=== PATIENT | female | born 1990 | race African-American/Black ===

== ENCOUNTER → 2016-11-20 | Outpatient (CLI) | payer BC ==
[~2016-11-20] MED LIST: ACET50TA PO; ALBU17IN INH; BENZ100C5 PO; CAND4TAB PO; FLON1SPR; IBUP80TA PO; MAG400TA PO; METO-207 PO; MOM30SS PO; PRED10TA PO; PRENATAL VITAMIN PO; PRENTAB9 PO
--- NOTE | 2016-11-20 22:14 | REP ---
Clinical: Contusion. Technique: AP, lateral views of the left tibia / fibula. Findings: No acute fracture or dislocation. Skeletal structures and joint spaces are intact and normal for age. Surrounding subcutaneous tissues are normal. Impression: Normal left tibia / fibula radiographs. Signed by Mike Dinero MD 11/20/2016 10:06 P
== END ==
LOC: M ADAMS 18:34
PROVIDERS: ATTEND Physician Assistant Medical
DX: S80.12XA Contusion of left lower leg, initial encounter (principal); X58.XXXA Exposure to other specified factors, initial encounter; Y92.89 Other specified places as the place of occurrence of the external cause; Y93.89 Activity, other specified; Y99.8 Other external cause status

== ENCOUNTER → 2018-03-17 | Outpatient (REF) | payer BC | LOC: M SFHCPLAZ 13:34 | DX: O90.3 Peripartum cardiomyopathy (principal); E55.9 Vitamin D deficiency, unspecified; R20.2 Paresthesia of skin ==

== ENCOUNTER → 2018-04-29 | Outpatient (CLI) | payer BC | LOC: M RAD 11:15 | DX: R05 Cough (principal) | CPT/HCPCS: 71046 ==

== ENCOUNTER → 2018-04-29 | Outpatient (REF) | payer BC ==
[2018-04-29 13:16] LABS: BASO % 0.4 % (0.0-1.0); EOS # 0.2 10^3/uL (0.0-0.50); EOS % 2.6 % (0.0-3.0); HEMATOCRIT 35.5 % (36.0-47.0); HEMOGLOBIN 11.1 g/dl (12.0-15.5); IMMATURE GRANULOCYTE % 0.3 % (0-3.0); LYMPH # 1.9 10^3/uL (1.5-6.5); LYMPH % 21.1 % (24.0-44.0); MEAN CORPUSCULAR HEMOGLOBIN 26.9 pg (27.0-33.0); MEAN CORPUSCULAR HGB CONC 31.3 g/dl (32.0-36.5); MONO # 0.5 10^3/uL (0.0-0.8); NEUTROPHILS # 6.4 10^3/uL (1.8-7.7); NEUTROPHILS % 70.6 % (36.0-66.0); PLATELET COUNT, AUTOMATED 425 10^3/uL (150-450); RED BLOOD COUNT 4.13 10^6/uL (4.00-5.40); RED CELL DISTRIBUTION WIDTH 14.8 % (11.5-14.5); WHITE BLOOD COUNT 9.1 10^3/uL (4.0-10.0)
[2018-04-29 13:37] LABS: ALBUMIN 3.1 GM/DL (3.2-5.2); ALBUMIN/GLOBULIN RATIO 0.72 (1.00-1.93); ALKALINE PHOSPHATASE 137 U/L (45-117); ALT/SGPT 18 U/L (12-78); ANION GAP 9 MEQ/L (8-16); AST/SGOT 13 U/L (7-37); BILIRUBIN,TOTAL 0.3 MG/DL (0.2-1.0); BLOOD UREA NITROGEN 8 MG/DL (7-18); CALCIUM LEVEL 8.6 MG/DL (8.5-10.1); CARBON DIOXIDE LEVEL 28 MEQ/L (21-32); CHLORIDE LEVEL 105 MEQ/L (98-107); CHOLESTEROL LEVEL 194 MG/DL (<200); CHOLESTEROL RISK RATIO 3.464 (<5); FREE T4 0.78 NG/DL (0.76-1.46); GLOMERULAR FILTRATION RATE > 60.0 (>60); GLUCOSE, FASTING 84 MG/DL (70-100); HDL CHOLESTEROL 56 MG/DL (>40); LDL CHOLESTEROL 116.8 MG/DL (<100); NON-HDL-C 138 MG/DL; POTASSIUM SERUM 4.3 MEQ/L (3.5-5.1); SODIUM LEVEL 142 MEQ/L (136-145); TOTAL PROTEIN 7.4 GM/DL (6.4-8.2); TRIGLYCERIDES LEVEL 106 MG/DL (<150)
[2018-04-29 14:18] LABS: FOLATE 14.6 NG/ML; VITAMIN B12 LEVEL 470 PG/ML
== END ==
LOC: M SFHCPLAZ 10:05
DX: J30.2 Other seasonal allergic rhinitis (principal); I42.9 Cardiomyopathy, unspecified; E66.9 Obesity, unspecified; E83.40 Disorders of magnesium metabolism, unspecified; R20.2 Paresthesia of skin
CPT/HCPCS: 82746

== ENCOUNTER → 2018-06-01 | Outpatient (CLI) | payer BC | LOC: M WUC 14:37 | DX: M79.662 Pain in left lower leg (principal); M25.571 Pain in right ankle and joints of right foot; M77.31 Calcaneal spur, right foot; M79.89 Other specified soft tissue disorders | CPT/HCPCS: 73590 ==

== ENCOUNTER → 2018-07-28 | Outpatient (CLI) | payer BC ==
[2018-07-28 14:39] LABS: ANION GAP 8 MEQ/L (8-16); BLOOD UREA NITROGEN 6 MG/DL (7-18); CARBON DIOXIDE LEVEL 27 MEQ/L (21-32); CHLORIDE LEVEL 106 MEQ/L (98-107); CREATININE FOR GFR 0.56 MG/DL (0.55-1.30); GLOMERULAR FILTRATION RATE > 60.0 (>60); GLUCOSE, FASTING 76 MG/DL (70-100); POTASSIUM SERUM 4.4 MEQ/L (3.5-5.1); SODIUM LEVEL 141 MEQ/L (136-145)
== END ==
LOC: M LAB 12:58
DX: Z01.812 Encounter for preprocedural laboratory examination (principal); Z79.899 Other long term (current) drug therapy; G56.03 Carpal tunnel syndrome, bilateral upper limbs
CPT/HCPCS: 80048

== ENCOUNTER → 2019-04-17 | Outpatient (REF) | payer BC ==
[~2019-04-17] MED LIST changes: -ACET50TA PO; +BENZ-18 PO; -BENZ100C5 PO; +MAPA500T17 PO; -METO-207 PO; +METO1TAB7 PO; +PRED-351 PO; -PRED10TA PO
== END ==
LOC: M LAB REF 12:15
PROVIDERS: ATTEND Physician Assistant Medical
DX: J02.9 Acute pharyngitis, unspecified (principal)

== ENCOUNTER → 2019-04-26 | Outpatient (CLI) | payer BC ==
--- NOTE | 2019-04-26 13:39 | REP ---
CHEST, TWO VIEWS: COMPARISON: 04/29/2018. There is no evidence of acute infiltrate. No pleural effusion is seen. The heart is normal in size. The mediastinal silhouette is unremarkable. The visualized osseous structures are intact. IMPRESSION: No acute pulmonary disease. Electronically Signed by Butch Kingsley MD 04/27/2019 11:36 A
== END ==
LOC: M LAB 12:47
PROVIDERS: ATTEND Family Medicine
DX: I50.42 Chronic combined systolic (congestive) and diastolic (congestive) heart failure (principal); R05 Cough

== ENCOUNTER → 2019-05-27 | Outpatient (REF) | payer BC ==
[2019-05-27 19:08] LABS: BASO % 0.3 % (0.0-1.0); BLOOD UREA NITROGEN 8 MG/DL (7-18); CALCIUM LEVEL 8.7 MG/DL (8.5-10.1); CARBON DIOXIDE LEVEL 26 MEQ/L (21-32); CHLORIDE LEVEL 105 MEQ/L (98-107); CREATININE FOR GFR 0.52 MG/DL (0.55-1.30); EOS # 0.3 10^3/uL (0.0-0.50); EOS % 2.8 % (0.0-3.0); GLOMERULAR FILTRATION RATE > 60.0 (>60); GLUCOSE, FASTING 64 MG/DL (70-100); HEMATOCRIT 36.2 % (36.0-47.0); HEMOGLOBIN 11.4 g/dl (12.0-15.5); LYMPH # 2.3 10^3/uL (1.5-4.5); LYMPH % 23.1 % (24.0-44.0); MEAN CORPUSCULAR HEMOGLOBIN 27.3 pg (27.0-33.0); MEAN CORPUSCULAR HGB CONC 31.5 g/dl (32.0-36.5); MEAN CORPUSCULAR VOLUME 86.8 fl (80.0-96.0); MONO # 0.6 10^3/uL (0.0-0.8); NEUTROPHILS # 6.7 10^3/uL (1.8-7.7); NEUTROPHILS % 67.5 % (36.0-66.0); NT-PRO BNP 62 PG/ML (<125); PLATELET COUNT, AUTOMATED 422 10^3/uL (150-450); POTASSIUM SERUM 4.1 MEQ/L (3.5-5.1); RED BLOOD COUNT 4.17 10^6/uL (4.00-5.40); SODIUM LEVEL 139 MEQ/L (136-145)
== END ==
LOC: M SFHCPLAZ 15:33
PROVIDERS: ATTEND Nurse Practitioner Family
DX: J06.9 Acute upper respiratory infection, unspecified (principal); I50.42 Chronic combined systolic (congestive) and diastolic (congestive) heart failure

== ENCOUNTER → 2019-08-23 | Outpatient (CLI) | payer BC ==
--- NOTE | 2019-08-23 11:58 | REP ---
ULTRASOUND RIGHT BREAST: Real-time sonographic evaluation of the right breast performed in the region of the palpable lump 10-o'clock position right breast. Tyrer-Cuzick lifetime risk of breast cancer 15.7%. At that location, a hypoechoic nodule with lobulated and somewhat irregular margins is seen demonstrating internal arterial blood flow with duplex Doppler evaluation. It measures 4.7 x 2.4 x 3.9 cm. IMPRESSION: ACR 4 suspicious. Solid mass with somewhat irregular margins at the site of the palpable lump right breast 10-o'clock region. This measure 4.7 x 2.4 x 3.9 cm. Ultrasound-guided biopsy is recommended.
== END ==
LOC: M WHC 09:04
PROVIDERS: ATTEND Nurse Practitioner Family
DX: N63.0 Unspecified lump in unspecified breast (principal)

== ENCOUNTER → 2019-09-01 | Outpatient (REF) | payer BC | LOC: M LAB REF 10:21 | PROVIDERS: ATTEND Surgery | DX: D05.12 Intraductal carcinoma in situ of left breast (principal) ==

== ENCOUNTER → 2019-09-10 | Outpatient (CLI) | payer BC ==
[~2019-09-10] MED LIST changes: +ONDA4TAB5 PO; +SPIR-10 PO; +VENL37.598 PO
--- NOTE | 2019-09-10 20:35 | ECHO ---
DATE OF PROCEDURE: 09/10/2019 Date of : 1990 Age: 29 REFERRING PROVIDER: Dr. Yue Wilson REASON FOR THE STUDY: Chemotherapy drug monitoring. History of breast cancer. History of cardiomyopathy. 2D MEASUREMENTS: IVS: 0.9 cm LV: 5.4 cm LVPW: 1.0 cm LA: 3.7 cm Aorta: 3.5 cm IVC: 1.8 cm DOPPLER MEASUREMENTS: Peak velocity across the aortic valve: 1.2 meters per second Peak velocity across the LVOT: 0.73 meters per second Mitral E: 0.77, mitral A: 0.61 with a ratio of 1.3 2D COMMENTS: 1. Normal left ventricular wall thickness with a borderline enlarged left ventricle and a mildly depressed global left ventricular systolic function. The estimated left ventricular systolic ejection fraction is 45-50%. 2. Normal left atrium. Normal right atrium and right ventricle. 3. The atrial septum appeared to be normal without evidence of defect or shunt. 4. Normal aortic root. 5. No pericardial effusion seen. 6. Mildly calcified aortic valve with normal aortic valve. Mildly calcified mitral annulus with normal anterior mitral valve leaflet motion. Normal tricuspid valve and pulmonic valve. The proximal pulmonary artery branches were not well visualized. 7. The inferior vena cava was normal in size, central venous pressure is most likely normal. DOPPLER: No significant valvular abnormalities detected, but trace mitral and tricuspid regurgitation. IMPRESSION: 1. Mild global left ventricular systolic dysfunction with global hypokinesis. Left ventricular diastolic function appeared to have improved. 2. Mitral annulus calcification with trace mitral regurgitation. 3. Trace tricuspid regurgitation. 4. This was compared with prior echocardiogram report done on 10/20/2015 and at the time, left ventricular ejection fraction (LVEF) was reported to be 10-15% with moderate mitral regurgitation, moderate tricuspid regurgitation. MTDD
== END ==
LOC: M CARPUL 11:07
PROVIDERS: ATTEND Internal Medicine Hematology & Oncology
DX: C50.919 Malignant neoplasm of unspecified site of unspecified female breast (principal); I08.1 Rheumatic disorders of both mitral and tricuspid valves

== ENCOUNTER → 2019-09-22 | Outpatient (CLI) | payer BC | LOC: M RAD 15:12 | PROVIDERS: ATTEND Surgery | DX: C50.411 Malignant neoplasm of upper-outer quadrant of right female breast (principal) ==

== ENCOUNTER 2019-10-05 22:36 | Inpatient (IN) | payer BC ==
[~2019-10-05] VITALS: Ht 170.2 cm; Wt 127.5 kg
[2019-10-05] MEDS ORDERED: MORPHINE 4 MG/ML 1ML VIAL/SYRINGE (J2270) IV ONE ×2 (23:00→23:45)
[2019-10-05] MEDS ORDERED: NS 1,000 ML IV ONE (23:00)
[2019-10-05 23:24] LABS: HEMATOCRIT 34.2 % (36.0-47.0); HEMOGLOBIN 10.4 g/dl (12.0-15.5); MEAN CORPUSCULAR HEMOGLOBIN 26.6 pg (27.0-33.0); MEAN CORPUSCULAR HGB CONC 30.4 g/dl (32.0-36.5); MEAN CORPUSCULAR VOLUME 87.5 fl (80.0-96.0); PLATELET COUNT, AUTOMATED 252 10^3/uL (150-450); RED BLOOD COUNT 3.91 10^6/uL (4.00-5.40); VENOUS BASE EXCESS 1.1 (-2.0-2.0); VENOUS HCO3 27.2 MEQ/L (23.0-27.0); VENOUS O2 SATURATION 80.5 % (60.0-80.0); VENOUS PARTIAL PRESSURE CO2 49.3 mmHg (38.0-50.0); VENOUS PARTIAL PRESSURE O2 46.8 mmHg (30.0-50.0); VENOUS PH 7.359 UNITS (7.330-7.430); VENOUS STANDARD HCO3 25.2 MEQ/L; VENOUS TOTAL CO2 28.7 MEQ/L (24.0-28.0)
[2019-10-05 23:48] LABS: WHITE BLOOD COUNT 1.8 10^3/uL (4.0-10.0)
[2019-10-05 23:55] LABS: ATYPICAL LYMPH 1 % (0-5); BASOPHILS 2 % (0-1); EOSINOPHILS 3 % (0-3); HYPOCHROMASIA 1+; LYMPHOCYTES 70 % (16-44); MONOCYTES 12 % (0-5); NEUTROPHILS 12 % (28-66); PLATELET ESTIMATE NORMAL (NORMAL)
[2019-10-05 23:56] LABS: ANISOCYTOSIS 1+
--- NOTE | 2019-10-05 23:57 | ECGEPIP ---
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
[2019-10-05 23:59] LABS: ALBUMIN 2.7 GM/DL (3.2-5.2); ALT/SGPT 55 U/L (12-78); BILIRUBIN,DIRECT 0.1 MG/DL (0.0-0.2); BILIRUBIN,TOTAL 0.2 MG/DL (0.2-1.0); BLOOD UREA NITROGEN 9 MG/DL (7-18); CALCIUM LEVEL 7.6 MG/DL (8.5-10.1); CARBON DIOXIDE LEVEL 31 MEQ/L (21-32); CHLORIDE LEVEL 101 MEQ/L (98-107); CK-MB VALUE MASS < 1.0 NG/ML (<3.6); CPK CREATINE PHOSPHOKINASE 42 U/L (26-192); GLOMERULAR FILTRATION RATE > 60.0 (>60); GLUCOSE, FASTING 116 MG/DL (70-100); MB/CK RELATIVE INDEX 2.38 (< OR =4); POTASSIUM SERUM 3.5 MEQ/L (3.5-5.1); SODIUM LEVEL 139 MEQ/L (136-145); TOTAL PROTEIN 6.1 GM/DL (6.4-8.2); TROPONIN I < 0.02 NG/ML (< 0.10)
[2019-10-06] VITALS (8 sets, daily range): BP systolic 108–134; BP diastolic 62–81; PULSE 100
[2019-10-06] MEDS ORDERED: CEFEPIME HCL 2 GM in D5W MINI-BAG PLUS 50 ML IV ONE ×2
[2019-10-06 00:06] LABS: HCG, SERUM QUALITATIVE NEGATIVE (NEGATIVE)
[2019-10-06] MEDS ORDERED: DEXA4TA PO (00:09)
[2019-10-06] MEDS ORDERED: METO1TAB33 PO (00:09)
[2019-10-06] MEDS ORDERED: CAND4TAB PO (00:09)
[2019-10-06] MEDS ORDERED: IBUP1TAB6 PO (00:09)
[2019-10-06] MEDS ORDERED: VENL75CA47 PO (00:09)
[2019-10-06] MEDS ORDERED: MAGN400T3 PO (00:09)
[2019-10-06] MEDS ORDERED: ASPI81CH44 PO (00:09)
[2019-10-06] MEDS ORDERED: ISOVUE-370 76% 100ML VIAL (Q9967) As Ordered ONE (00:12)
--- NOTE | 2019-10-06 01:12 | REPVR ---
PROCEDURE INFORMATION: Exam: CT Angiography Chest With Contrast Exam date and time: 10/05/2019 11:38 PM Age: 29 years old Clinical history: Right-sided chest pain, elevated d-dimer, breast CA on chemo, eval for PE TECHNIQUE: Imaging protocol: Computed tomographic angiography of the chest with intravenous contrast. 3D rendering: MIP reconstructed images were created and reviewed. Radiation optimization: All CT scans at this facility use at least one of these dose optimization techniques: automated exposure control; mA and/or kV adjustment per patient size (includes targeted exams where dose is matched to clinical indication); or iterative reconstruction. Contrast material: ISO; Contrast volume: 75 ml; Contrast route: UPPER ARM; COMPARISON: CR PORTABLE CHEST X-RAY 10/05/2019 11:49:31 PM BREAST U/S UNILATERAL LIMITED 08/23/2019 8:31:[address] ANGIO CHEST 10/20/2015 3:50 PM FINDINGS: Tubes, catheters and devices: There is a left internal jugular Port-A-Cath terminating in the junction of the superior vena cava and right atrium. Pulmonary arteries: There is no pulmonary embolism in the main, lobar, or segmental pulmonary arteries. The timing of the contrast bolus was suboptimal for the assessment of the subsegmental pulmonary arteries, which are poorly opacified. Great vessels off aortic arch: The brachiocephalic artery, imaged proximal portion of the left common carotid artery, and left subclavian artery are intact. No significant stenosis or occlusion of these vessels is noted. Aorta: There is no thoracic aortic aneurysm, pseudoaneurysm, intramural hematoma, penetrating atherosclerotic ulcer, or dissection. Lungs: The lungs are clear. There is no lung consolidation or mass. No interstitial lung disease or emphysematous changes are noted. The major airways are patent. Incidental note is made of a 5 mm tracheal diverticulum arising from the right posterolateral aspect of the trachea at the level of the thoracic inlet, which is stable compared to the prior CT on 10/20/2015. Pleural space: Unremarkable. No pneumothorax. No pleural effusion. Heart: No cardiomegaly. No pericardial effusion. The ratio of the diameter of the right ventricle to the diameter of the left ventricle measures less than 1, which is within normal limits and there is no evidence for a right ventricular strain. Mediastinum: No mediastinal mass, fluid collection, or pneumomediastinum. Lymph nodes: There are subcentimeter right axillary lymph nodes measuring up to 9 mm. No enlarged lymph nodes measuring greater than 1 cm are noted in the chest. Bones/joints: The imaged bony structures are intact. There is no suspicious osteolytic lesion. Incidental note is made of a small bone island in the right side of the T7 vertebral body. Soft tissues: There is a 5.8 cm x 4.3 cm x 5.6 cm irregular mass in the right breast, which likely corresponds to the patient's known breast cancer. IMPRESSION: 1. No pulmonary embolism in the main, lobar, or segmental pulmonary arteries. The timing of the contrast bolus was suboptimal for the assessment of the subsegmental pulmonary arteries, which are poorly opacified. 2. 5.8 cm x 4.3 cm x 5.6 cm irregular mass in the right breast, which likely corresponds to the patient's known breast cancer. Electronically signed by: Rohan Bernard On 10/06/2019 01:11:20 AM
[2019-10-06] MEDS ORDERED: ACETAMINOPHEN TAB 650MG DOSE (2X325MG) PO PRN (02:15)
[2019-10-06] MEDS ORDERED: MAGIC MOUTHWASH SUSPENSION BTL SSP PRN (02:15)
[2019-10-06] MEDS ORDERED: IBUPROFEN 600 MG TAB PO PRN (02:30)
[2019-10-06] MEDS ORDERED: ASPIRIN 81 MG CHEW TABLET PO SCH (02:30)
[2019-10-06] MEDS ORDERED: ONDANSETRON 4 MG TAB (S0181) PO PRN ×2 (02:30→03:00)
[2019-10-06] MEDS: NS 1,000 ML IV SCH ×2 (03:16→14:53)
[2019-10-06 03:20] LABS: LDH LACTATE DEHYDROGENASE 254 U/L (84-246)
[2019-10-06] MEDS ORDERED: POTASSIUM CHLORIDE 10 MEQ SR TABLET PO ONE (04:00)
[2019-10-06] MEDS: MEROPENEM INJ 1 GM in IV 1 EA IV SCH ×3 (05:18→20:52)
[2019-10-06 06:03] LABS: HEMATOCRIT 32.4 % (36.0-47.0); HEMOGLOBIN 10.1 g/dl (12.0-15.5); MEAN CORPUSCULAR HEMOGLOBIN 26.9 pg (27.0-33.0); MEAN CORPUSCULAR HGB CONC 31.2 g/dl (32.0-36.5); MEAN CORPUSCULAR VOLUME 86.4 fl (80.0-96.0); PLATELET COUNT, AUTOMATED 258 10^3/uL (150-450); RED BLOOD COUNT 3.75 10^6/uL (4.00-5.40); WHITE BLOOD COUNT 2.1 10^3/uL (4.0-10.0)
--- NOTE | 2019-10-06 06:21 | HPEPDOC ---
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 Das Oncologist: Dr. Huff in [place] Attending Physician: ERIC DUMONT DO Chief Complaint The patient is a 29-year-old female admitted with a reason for visit of Cardiomyopathy,Chemotherapy Induced Neutropenia,Ch. History of Present Illness This is a 29-year-old female with notable history of dilated cardiomyopathy from 4 years ago with a residual EF reported 45%, and recently diagnosed right-sided breast cancer without any metastases on August 30 of this year, with first chemotherapy session this past . She reports she also received Neulasta on Friday, which led to bone aches and chills. She presents today for gradually worsening dyspnea and right chest pain that began yesterday around 5 PM at work, no inciting factors. No recent exposures, travel, changes in meds. She describes pain as sharp, intermittent localized to substernal and right chest wall without any radiation, worse with inhalation and activity, improved with sitting up and resting. She reports her dyspnea started along with this. No cough, fever, or phlegm production. In the ER, she was noted to be neutropenic with 12 neutrophils, EKG in sinus tach with rate in 130s without any other acute changes. D-dimer also +1300+, CTA negative for PE. She received 1 dose of cefepime, fluids. Will be admitted for continued symptoms setting of severe neutropenia. Home Medications Scheduled Aspirin (Aspirin) 81 Mg Tab.chew, 324 MG PO ASDIRECTED, (Reported) TAKEN PRIOR TO ARRIVAL TO HOSPITAL Candesartan Cilexetil (Candesartan Cilexetil) 4 Mg Tablet, 4 MG PO DAILY, (Reported) Dexamethasone (Dexamethasone) 4 Mg Tablet, 8 MG PO ASDIRECTED, (Reported) TAKES 2 TABS THE DAY BEFORE, THE DAY OF AND THE DAY AFTER CHEMO. NEXT TREATMENT AROUND October. Magnesium Oxide (Magnesium Oxide) 400 Mg Tablet, 400 MG PO QHS, (Reported) Metoprolol Succinate (Metoprolol Succinate) 100 Mg Tab.er.24h, 150 MG PO QHS, (Reported) Spironolactone (Spironolactone) 25 Mg Tablet, 25 MG PO DAILY, (Reported) Venlafaxine HCl (Venlafaxine HCl ER) 75 Mg Cap.er.24h, 75 MG PO BID, (Reported) Scheduled PRN Ibuprofen (Ibuprofen) 600 Mg Tablet, 600 MG PO Q6H PRN for PAIN, (Reported) Ondansetron HCl (Ondansetron HCl) 4 Mg Tablet, 1 TAB PO Q4HP PRN for nausea/vomiting Allergies Coded Allergies: Gadolinium-Containing Contrast Medi (Verified Adverse Reaction, Unknown, vomit, 10/05/19) Past Medical History Medical History Dilated cardio myopathy in 2014 with residual EF 45% Right-sided breast cancer diagnosed August 2019, reportedly no metastases Surgical History Carpal tunnel release left hand Tubal ligation Family History Father of unknown causes, mother alive with ovarian cancer, 4 sisters and 3 brothers healthy Social History Denies ever smoking, drinking, or illicit substances. Lives at home with and 3 children. 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 A-FIB/CHADSVASC A-FIB History Current/History of A-Fib/PAF?: No Current PO Anticoag Therapy: No Review of Systems Other systems Constitutional: Denies fever, night sweats, weight loss. Admits chills Eyes: Denies eye pain, vision change ENT: Denies headaches, ear pain, dysphagia Skin: Denies any rashes or lesions Pulmonary: Admits dyspnea. Denies cough, wheezing Cardiac: Denies palpitations, orthopnea, PND, edema, lightheadedness GI: Denies nausea, vomiting, abdominal pain, diarrhea, constipation, melena, hematochezia MSK: Admits right chest pain. Denies other pains Neurologic: Denies weakness, numbness/tingling Heme/Onc: Admits to recently diagnosed breast cancer Physical Examination Other physical findings General exam: Alert and cooperative, A&O 3, NAD Eye exam: PERRLA, EOMI, anicteric sclerae ENT: Atraumatic, normocephalic, mucous membranes moist Neck: Supple, no JVD, no carotid bruits or appreciable adenopathy Cardiac: RRR at time of exam, normal S1 & S2, no murmurs Respiratory: good air exchange, no wheezing or rales. Mild rhonchi in the right lower base, otherwise clear throughout Abdomen: Soft, normoactive bowel sounds, nontender, nondistended, no masses Extremity: 2+ radial and dorsalis pedis pulses, no edema, clubbing, cyanosis, or tenderness Skin: warm, dry, no visible rash or lesions Neuro: Strength 5/5 x4, normal tone, normal speech, CN III-XII intact MSK: Strength 5/5 x4, tender to palpation in midsternal region and right medial side of anterior chest Psych: Flat affect Vital Signs Vital Signs Date Time Temp Pulse Resp B/P (MAP) Pulse Ox O2 Delivery O2 Flow Rate FiO2 10/06/19 04:00 97.3 98 18 108/62 (77) 95 Room Air 10/06/19 01:36 2.0 Laboratory Data Labs 24H Laboratory Tests 2 10/05/19 23:09: Neutrophils # (Auto) , Nucleated Red Blood Cells % (auto) 0.0, Neutrophils 12L, Lymphocytes (Manual) 70H, Monocytes (Manual) 12H, Eosinophils (Manual) 3, Basophils (Manual) 2H, Atypical Lymphocytes 1, Hypochromasia 1+, Anisocytosis 1+, Platelet Estimate NORMAL, D-Dimer, Quantitative 1342.24H, Blood Gas Bicarbonate Standard 25.2, Venous Blood pH 7.359, Venous Blood Partial Pressure CO2 49.3, Venous Blood Partial Pressure O2 46.8, Venous Blood Total Carbon Dioxide 28.7H, Venous Blood HCO3 27.2H, Venous Blood Oxygen Saturation 80.5H, Venous Blood Base Excess 1.1, Anion Gap 7L, Glomerular Filtration Rate > 60.0, Calcium Level 7.6L, Total Bilirubin 0.2, Direct Bilirubin 0.1, Aspartate Amino Transf (AST/SGOT) 36, Alanine Aminotransferase (ALT/SGPT) 55, Alkaline Phosph atase 120H, Lactate Dehydrogenase 254H, Total Creatine Kinase 42, Creatine Kinase MB < 1.0, Creatine Kinase MB Relative Index 2.38, Troponin I < 0.02, Total Protein 6.1L, Albumin 2.7L, Albumin/Globulin Ratio 0.79L, Thyroid Stimulating Hormone (TSH) 2.820, Human Chorionic Gonadotropin, Qual NEGATIVE CBC/BMP Laboratory Tests 10/05/19 23:09 Microbiology Microbiology 10/05/19 Blood Culture, Received Pending 10/05/19 Blood Culture, Received Pending Assessment/Plan Severe neutropenia Although no bandemia, WBC 1.8 with 12 neutrophils. NCI Risk category 4 Likely chemotherapy-induced, her first session being this past S/P Neulasta this past Friday She reports never having abnormal blood counts prior to chemo, confirmed by her chart dating back 2008 Although afebrile, concern of impending infection. Will start prophylactic antibiotics Initiate Neupogen Consider consulting oncology in a.m. Atypical chest pain Likely musculoskeletal, worsening with deep inspiration and palpation Possible costochondritis 2/2 recent chemotherapy EKG without any concerning CT or ST changes. 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 Das Gentle IV fluid hydration, monitor volume status DVT ppx: Mechanical DISPO: Admit to hospital. Given her severe neutropenia and risk of infection in immunocompromised state, and pending further workup, will require hospitalization greater than 2 midnights. Plan / VTE VTE Prophylaxis Ordered?: Yes ARELI RAM DO Oct 06, 2019 06:21
[2019-10-06 07:05] LABS: ATYPICAL LYMPH 3 % (0-5); EOSINOPHILS 1 % (0-3); LYMPHOCYTES 72 % (16-44); MONOCYTES 9 % (0-5); NEUTROPHILS 12 % (28-66)
[2019-10-06 07:06] LABS: ANISOCYTOSIS 1+; PLATELET ESTIMATE NORMAL (NORMAL)
--- NOTE | 2019-10-06 08:08 | REP ---
Portable chest x-ray: Single view. History: Chest pain. Comparison study: April 26, 2019. Findings: Monitoring electrodes are seen. There is a left-sided Qdzbfu-Y-[id number] catheter with its tip in the expected location of the SVC. The lungs are symmetrically aerated and free of infiltrate. Heart is not enlarged. Pulmonary vasculature is not increased. Impression: No acute disease. [id number]-[id number] catheter noted. Electronically Signed by Silverio Lara MD 10/06/2019 07:59 A
[2019-10-06] MEDS ORDERED: FILGRASTIM 480 MCG/0.8 ML SYRINGE (J1442) SC SCH (09:00)
[2019-10-06] MEDS ORDERED: FILGRASTIM 300 MCG/0.5 ML SYRINGE (J1442 PER 1MCG) SC SCH (09:00)
[2019-10-06] MEDS: VENLAFAXINE **XR** 75MG CAPSULE PO SCH ×2 (10:01→20:53)
[2019-10-06] MEDS: CANDESARTAN 4MG TABLET PO SCH (10:01)
[2019-10-06] MEDS: SPIRONOLACTONE 25 MG TAB PO SCH (10:02)
[2019-10-06] MEDS ORDERED: NAPROXEN 250 MG TAB PO ONE (12:00)
--- NOTE | 2019-10-06 14:23 | IPNPDOC ---
Date Seen The patient was seen on 10/06/19. Progress Note SUBJECTIVE: Patient appeared comfortable in bed. Afebrile overnight. Stated that her chest pain is better but still feels it. Pain is midsternal and worsens with deep inspiration and reproducible with palpation/pressure. WBC 1.8->2.1. OBJECTIVE PHYSICAL EXAMINATION: VITAL SIGNS: Please see below. General: No acute distress, Alert Eyes: Normal sclera, EOMI, MONSE HENT: Atraumatic, neck supple, moist mucous membranes Cardiovascular: Normal rate, normal rhythm. Midsternum tender on palpation. Pulmonary: Clear to auscultation b/l, no wheezing GI: Soft, nontender, nondistended Skin: Warm and dry Neuro: CN grossly intact. No focal deficits. Strengths equal b/l. Psych: oriented x 3 LABORATORY DATA, IMAGING STUDIES, MICROBIOLOGY: Please see below. DVT prophylaxis ordered?: SCD ASSESSMENT AND PLAN: 1. Severe neutropenia - WBC 1.8 on presentation with 12 neutrophils. Slightly trending up. - Likely 2/2 chemoetherapy for breast cancer, last session last week. - Has been afebrile and started on Neupogen. - On Abx while pending blood cultures. - CXR clear. 2. Atypical chest pain - worsens with deep inspiration and reproducible likely musculoskeletal. CTA negative for PE. - No EKG changes with negative troponins. Has had previously similar episodes of chest pain. - c/w Ibuprofen. Consider switching to Naproxen to see if more relief can be achieved. 3. Breast cancer - s/p chemo x1 last and follows with Dr. Huff in [place]. 4. peripartum cardiomyopathy - Reported EF 45% and follows with Dr. Das. - c/w follow up post discharge. DVT ppx: SCD Dispo: Home when symptoms improve and infectious etiology ruled out. VS, I&O, 24H, Fishbone Vital Signs/I&O Vital Signs Date Time Temp Pulse Resp B/P (MAP) Pulse Ox O2 Delivery O2 Flow Rate FiO2 10/06/19 12:00 98.3 80 18 115/68 (84) 93 10/06/19 10:51 Room Air 10/06/19 01:36 2.0 I&O- Last 24 Hours up to 6 AM 10/06/19 06:00 Intake Total 330 ml Balance 330 ml Laboratory Data 24H LABS Laboratory Tests 2 10/05/19 23:09: Neutrophils # (Auto) , Nucleated Red Blood Cells % (auto) 0.0, Neutrophils 12L, Lymphocytes (Manual) 70H, Monocytes (Manual) 12H, Eosinophils (Manual) 3, Basophils (Manual) 2H, Atypical Lymphocytes 1, Hypochromasia 1+, Anisocytosis 1+, Platelet Estimate NORMAL, D-Dimer, Quantitative 1342.24H, Blood Gas Bi carbonate Standard 25.2, Venous Blood pH 7.359, Venous Blood Partial Pressure CO2 49.3, Venous Blood Partial Pressure O2 46.8, Venous Blood Total Carbon Dioxide 28.7H, Venous Blood HCO3 27.2H, Venous Blood Oxygen Saturation 80.5H, Venous Blood Base Excess 1.1, Anion Gap 7L, Glomerular Filtration Rate > 60.0, Calcium Level 7.6L, Total Bilirubin 0.2, Direct Bilirubin 0.1, Aspartate Amino Transf (AST/SGOT) 36, Alanine Aminotransferase (ALT/SGPT) 55, Alkaline Phosphatase 120H, Lactate Dehydrogenase 254H, Total Creatine Kinase 42, Creatine Kinase MB < 1.0, Creatine Kinase MB Relative Index 2.38, Troponin I < 0.02, Total Protein 6.1L, Albumin 2.7L, Albumin/Globulin Ratio 0.79L, Thyroid Stimulating Hormone (TSH) 2.820, Human Chorionic Gonadotropin, Qual NEGATIVE 10/06/19 05:38: Neutrophils # (Auto) , Nucleated Red Blood Cells % (auto) 0.0, Neutrophils 12L, Lymphocytes (Manual) 72H, Monocytes (Manual) 9H, Eosinophils (Manual) 1, Atypical Lymphocytes 3, Anisocytosis 1+, Platelet Estimate NORMAL, Band Neutrophils 3, Lactic Acid Level 1.6 CBC/BMP Laboratory Tests 10/05/19 23:09 10/06/19 05:38 Microbiology Microbiology 10/05/19 Blood Culture, Received Pending 10/05/19 Blood Culture, Received Pending ELIF STERLING MD Oct 06, 2019 14:23
[2019-10-06] MEDS ORDERED: NAPROXEN 250 MG TAB PO PRN (19:15)
[2019-10-06] MEDS ORDERED: METOPROLOL SUCC (TopROL XL) 50MG **XL** TAB PO SCH (21:00)
[2019-10-06] MEDS ORDERED: MAGNESIUM OXIDE 400 MG TAB (MAG-OX) PO SCH (21:00)
[2019-10-06] MEDS ORDERED: SODIUM CHLORIDE NASAL 0.65% SPRAY BTL (OCEAN) PRN (21:15)
[2019-10-07] VITALS: BP 126/54
[2019-10-07] MEDS ORDERED: CALCIUM CARBONATE 500 MG CHEW U/D PO PRN (00:45)
[2019-10-07] MEDS: NS 1,000 ML IV SCH (03:50)
[2019-10-07] MEDS: MEROPENEM INJ 1 GM in IV 1 EA IV SCH ×2 (03:50→12:00)
[2019-10-07 04:00] VITALS: BP 108/68
[2019-10-07 05:52] LABS: HEMATOCRIT 32.2 % (36.0-47.0); HEMOGLOBIN 9.8 g/dl (12.0-15.5); MEAN CORPUSCULAR HEMOGLOBIN 26.8 pg (27.0-33.0); MEAN CORPUSCULAR HGB CONC 30.4 g/dl (32.0-36.5); MEAN CORPUSCULAR VOLUME 88.2 fl (80.0-96.0); PLATELET COUNT, AUTOMATED 288 10^3/uL (150-450); RED BLOOD COUNT 3.65 10^6/uL (4.00-5.40); WHITE BLOOD COUNT 9.9 10^3/uL (4.0-10.0)
[2019-10-07 06:08] LABS: ALBUMIN 2.3 GM/DL (3.2-5.2); ALT/SGPT 51 U/L (12-78); BILIRUBIN,TOTAL 0.2 MG/DL (0.2-1.0); BLOOD UREA NITROGEN 5 MG/DL (7-18); CALCIUM LEVEL 7.9 MG/DL (8.5-10.1); CARBON DIOXIDE LEVEL 26 MEQ/L (21-32); CHLORIDE LEVEL 110 MEQ/L (98-107); CREATININE FOR GFR 0.46 MG/DL (0.55-1.30); GLOMERULAR FILTRATION RATE > 60.0 (>60); GLUCOSE, FASTING 95 MG/DL (70-100); MAGNESIUM LEVEL 1.9 MG/DL (1.8-2.4); POTASSIUM SERUM 4.2 MEQ/L (3.5-5.1); SODIUM LEVEL 141 MEQ/L (136-145); TOTAL PROTEIN 6.1 GM/DL (6.4-8.2)
[2019-10-07 08:00] VITALS: BP 141/76
[2019-10-07] MEDS: SPIRONOLACTONE 25 MG TAB PO SCH (08:43)
[2019-10-07] MEDS: CANDESARTAN 4MG TABLET PO SCH (08:43)
[2019-10-07] MEDS: VENLAFAXINE **XR** 75MG CAPSULE PO SCH (08:43)
[2019-10-07 12:00] VITALS: BP 143/67
[2019-10-07] MEDS ORDERED: NAPR250T4 PO (12:13)
--- NOTE | 2019-10-07 12:27 | DS.PDOC ---
Discharge Summary General Date of Admission Oct 06, 2019 at 02:13 Date of Discharge 10/07/19 Discharge Summary PROCEDURES PERFORMED DURING STAY: [None]. ADMITTING DIAGNOSES: 1. Severe neutropenia 2. Atypical chest pain 3. Breast cancer 4. Peripartum cardiomyopathy DISCHARGE DIAGNOSES: 1. Severe neutropenia 2. Atypical chest pain 3. Breast cancer 4. Peripartum cardiomyopathy COMPLICATIONS/CHIEF COMPLAINT: Cardiomyopathy,Chemotherapy Induced Neutropenia,Ch. HISTORY OF PRESENT ILLNESS: This is a 29-year-old female with notable history of dilated cardiomyopathy from 4 years ago with a residual EF reported 45%, and recently diagnosed right-sided breast cancer without any metastases on August 30 of this year, with first chemotherapy session this past . She reports she also received Neulasta on Friday, which led to bone aches and chills. She presents today for gradually worsening dyspnea and right chest pain that began yesterday around 5 PM at work, no inciting factors. No recent exposures, travel, changes in meds. She describes pain as sharp, intermittent localized to substernal and right chest wall without any radiation, worse with inhalation and activity, improved with sitting up and resting. She reports her dyspnea started along with this. No cough, fever, or phlegm production. In the ER, she was noted to be neutropenic with 12 neutrophils, EKG in sinus tach with rate in 130s without any other acute changes. D-dimer also +1300+, CTA negative for PE. She received 1 dose of cefepime, fluids. Will be admitted for continued symptoms setting of severe neutropenia. HOSPITAL COURSE: Patient was started on antibiotics and monitored for any evidence of infection b ut patient remained afebrile through course of admission. She does reports reproducible chest pain with negative cardiac workup, Ibuprofen PRN was changed to Naproxen with reported noticable improvement in symptoms. She was started on neupogen for neutropenia with improvement in white count as well. She was noted to have a brief period of tachycardia during hospitalization that had self resolved. No evidence of PE on CT Angio. Suspicious that this may be due to her anemia from chemo treatment. Hb 9.8 today, unsure of her baseline but she reports feeling better today without any significant complaints and wishes to go home. Will discharge patient to f/u with PMD and Oncology, does not appear to have a need to continue antibiotics at this time, especially since WBC had improved. Blood cultures also negative at this time, can follow up final result. DISCHARGE MEDICATIONS: Please see below. ALLERGIES: Please see below. PHYSICAL EXAMINATION ON DISCHARGE: VITAL SIGNS: Please see below. General: No acute distress, Alert Eyes: Normal sclera, EOMI, MONSE HENT: Atraumatic, neck supple, moist mucous membranes Cardiovascular: Normal rate, normal rhythm. Midsternum tender on palpation. Pulmonary: Clear to auscultation b/l, no wheezing GI: Soft, nontender, nondistended Skin: Warm and dry Neuro: CN grossly intact. No focal deficits. Strengths equal b/l. Psych: oriented x 3 LABORATORY DATA: Please see below. IMAGING: CT angio- IMPRESSION: 1. No pulmonary embolism in the main, lobar, or segmental pulmonary arteries. The timing of the contrast bolus was suboptimal for the assessment of the subsegmental pulmonary arteries, which are poorly opacified. 2. 5.8 cm x 4.3 cm x 5.6 cm irregular mass in the right breast, which likely corresponds to the patient's known breast cancer. ACTIVITY: [As tolerated]. DIET: Regular DISCHARGE PLAN: f/u PMD and Oncology DISPOSITION: Home. DISCHARGE INSTRUCTIONS: f/u PMD and Oncology ITEMS TO FOLLOWUP ON ON OUTPATIENT: 1. Final blood culture results DISCHARGE CONDITION: [Stable]. TIME SPENT ON DISCHARGE: 33 minutes. Vital Signs/I&Os Vital Signs Date Time Temp Pulse Resp B/P (MAP) Pulse Ox O2 Delivery O2 Flow Rate FiO2 10/07/19 08:00 97.4 86 18 141/76 (97) 97 Room Air 10/06/19 01:36 2.0 I&O- Last 24 Hours up to 6 AM 10/07/19 06:00 Intake Total 2410 ml Output Total 2000 ml Balance 410 ml Laboratory Data Labs 24H Laboratory Tests 2 10/07/19 05:22: Nucleated Red Blood Cells % (auto) 1.9H, Anion Gap 5L, Glomerular Filtration Rate > 60.0, Calcium Level 7.9L, Magnesium Level 1.9, Total Bilirubin 0.2, Aspartate Amino Transf (AST/SGOT) 33, Alanine Aminotransferase (ALT/SGPT) 51, Alkaline Phosphatase 116, Total Protein 6.1L, Albumin 2.3L, Albumin/Globulin Ratio 0.61L CBC/BMP Laboratory Tests 10/07/19 05:22 Microbiology Microbiology 10/05/19 Blood Culture - Preliminary, Resulted No growth after 24 hours . All specim... 10/05/19 Blood Culture - Preliminary, Resulted No growth after 24 hours . All specim... Discharge Medications Scheduled Aspirin (Aspirin) 81 Mg Tab.chew, 324 MG PO ASDIRECTED, (Reported) TAKEN PRIOR TO ARRIVAL TO HOSPITAL Candesartan Cilexetil (Candesartan Cilexetil) 4 Mg Tablet, 4 MG PO DAILY, (Reported) Dexamethasone (Dexamethasone) 4 Mg Tablet, 8 MG PO ASDIRECTED, (Reported) TAKES 2 TABS THE DAY BEFORE, THE DAY OF AND THE DAY AFTER CHEMO. NEXT TREATMENT AROUND October. Magnesium Oxide (Magnesium Oxide) 400 Mg Tablet, 400 MG PO QHS, (Reported) Metoprolol Succinate (Metoprolol Succinate) 100 Mg Tab.er.24h, 150 MG PO QHS, (Reported) Spironolactone (Spironolactone) 25 Mg Tablet, 25 MG PO DAILY, (Reported) Venlafaxine HCl (Venlafaxine HCl ER) 75 Mg Cap.er.24h, 75 MG PO BID, (Reported) Scheduled PRN Ibuprofen (Ibuprofen) 600 Mg Tablet, 600 MG PO Q6H PRN for PAIN, (Reported) Naproxen (Naproxen) 250 Mg Tablet, 500 MG PO BIDP PRN for PAIN Ondansetron HCl (Ondansetron HCl) 4 Mg Tablet, 1 TAB PO Q4HP PRN for nausea/vomiting Allergies Coded Allergies: Gadolinium-Containing Contrast Medi (Verified Adverse Reaction, Unknown, vomit, 10/05/19) ELIF STERLING MD Oct 07, 2019 12:27
[2019-10-07 16:00] VITALS: BP 139/68
== END 2019-10-07 14:56 | disposition home or self-care (01) | DRG 660 ==
LOC: M ED 22:36 → M ED INP 10-06 02:13 → M PCU 10-06 03:49
PROVIDERS: ADMIT Internal Medicine; ATTEND Student in an Organized Health Care Education/Training Program
DX: D70.1 Agranulocytosis secondary to cancer chemotherapy (principal); Z68.41 Body mass index [BMI] 40.0-44.9, adult; C50.911 Malignant neoplasm of unspecified site of right female breast; E66.01 Morbid (severe) obesity due to excess calories; R07.89 Other chest pain; Z79.82 Long term (current) use of aspirin; Z79.899 Other long term (current) drug therapy; T45.1X5A Adverse effect of antineoplastic and immunosuppressive drugs, initial encounter

== ENCOUNTER 2019-10-15 17:12 | Emergency (ER) | payer BC ==
[~2019-10-15] VITALS: Ht 162.6 cm; Wt 125.8 kg
[~2019-10-15 17:12] MED LIST changes: +ASPI81CH44 PO; +DEXA4TA PO; +IBUP1TAB6 PO; +MAGN400T3 PO; +METO1TAB33 PO; +NAPR250T4 PO; +VENL75CA47 PO
[2019-10-15] MEDS ORDERED: NS 1,000 ML IV SCH (18:00)
[2019-10-15] MEDS ORDERED: BENZONATATE 100 MG CAP PO ONE (18:00)
[2019-10-15 18:24] VITALS: BP 117/69
[2019-10-15 18:38] LABS: BASO # 0.1 10^3/uL (0.0-0.2); BASO % 0.8 % (0.0-1.0); EOS % 0.2 % (0.0-3.0); HEMATOCRIT 37.7 % (36.0-47.0); HEMOGLOBIN 11.5 g/dl (12.0-15.5); LYMPH % 22.8 % (24.0-44.0); MEAN CORPUSCULAR HEMOGLOBIN 26.8 pg (27.0-33.0); MEAN CORPUSCULAR HGB CONC 30.5 g/dl (32.0-36.5); MEAN CORPUSCULAR VOLUME 87.9 fl (80.0-96.0); MONO # 0.4 10^3/uL (0.0-0.8); NEUTROPHILS # 6.1 10^3/uL (1.5-8.5); NEUTROPHILS % 70.3 % (36.0-66.0); PLATELET COUNT, AUTOMATED 239 10^3/uL (150-450); RED BLOOD COUNT 4.29 10^6/uL (4.00-5.40); WHITE BLOOD COUNT 8.6 10^3/uL (4.0-10.0)
[2019-10-15 19:01] LABS: ALBUMIN 3.3 GM/DL (3.2-5.2); ALT/SGPT 42 U/L (12-78); BILIRUBIN,DIRECT < 0.1 MG/DL (0.0-0.2); BILIRUBIN,TOTAL 0.2 MG/DL (0.2-1.0); CK-MB VALUE MASS < 1.0 NG/ML (<3.6); CPK CREATINE PHOSPHOKINASE 43 U/L (26-192); LIPASE 93 U/L (73-393); MB/CK RELATIVE INDEX 2.33 (< OR =4); TOTAL PROTEIN 7.1 GM/DL (6.4-8.2); TROPONIN I < 0.02 NG/ML (< 0.10)
[2019-10-15 19:22] LABS: INR 1.05; PROTHROMBIN TIME 13.4 SECONDS (11.8-14.0)
[2019-10-15 19:23] LABS: PARTIAL THROMBOPLASTIN TIME 32.3 SECONDS (25.0-38.4)
[2019-10-15] MEDS ORDERED: ANUSOL HC CREAM 30GM TOP STA (19:45)
[2019-10-15] MEDS ORDERED: TESS100C PO (19:50)
[2019-10-15] MEDS ORDERED: ANUS2.5C2 TOP (19:50)
--- NOTE | 2019-10-17 07:16 | ECGEPIP ---
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
--- NOTE | 2019-10-18 07:54 | REP ---
Clinical: Cough . Comparison: 10/05/2019 . Technique: PA and lateral. Findings: The mediastinum and cardiac silhouette are normal. [id number]-A-[id number] with tip in the SVC/right atrium. The lung leone are clear and without acute consolidation, effusion, or pneumothorax. The skeletal structures are intact and normal. Impression: 1. No acute cardiopulmonary process. Electronically Signed by Mike Dinero MD 10/15/2019 08:39 P
== END 2019-10-15 20:17 | disposition home or self-care (01) ==
LOC: M ED 17:12
DX: R05 Cough (principal); K64.8 Other hemorrhoids; K92.1 Melena; R94.31 Abnormal electrocardiogram [ECG] [EKG]; Z79.899 Other long term (current) drug therapy; Z79.82 Long term (current) use of aspirin; Z85.3 Personal history of malignant neoplasm of breast; Z91.041 Radiographic dye allergy status

== ENCOUNTER 2019-11-01 13:27 | Inpatient (IN) | payer BC ==
[~2019-11-01] VITALS: Ht 162.6 cm; Wt 133.5 kg
[~2019-11-01 13:27] MED LIST changes: +ANUS2.5C2 TOP; +TESS100C PO
--- NOTE | 2019-11-01 14:06 | REP ---
Single view chest: 11/01/2019. Indication: Chest pain. Comparison: 10/15/2019. Findings: The lungs are clear. There is no pleural effusion or pneumothorax. Left-sided Port-A-Cath is unchanged in position. The cardiomediastinal silhouette is unremarkable. Impression: No acute cardiopulmonary process. Electronically Signed by Tyler Villatoro DO 11/01/2019 01:57 P
[2019-11-01] MEDS ORDERED: ASPIRIN 81 MG CHEW TABLET PO ONE (14:30)
[2019-11-01 15:17] LABS: BASO # 0.1 10^3/uL (0.0-0.2); BASO % 0.8 % (0.0-1.0); EOS % 0.4 % (0.0-3.0); HEMATOCRIT 33.6 % (36.0-47.0); HEMOGLOBIN 10.5 g/dl (12.0-15.5); LYMPH # 1.5 10^3/uL (1.5-5.0); LYMPH % 20.3 % (24.0-44.0); MEAN CORPUSCULAR HEMOGLOBIN 27.3 pg (27.0-33.0); MEAN CORPUSCULAR HGB CONC 31.3 g/dl (32.0-36.5); MEAN CORPUSCULAR VOLUME 87.3 fl (80.0-96.0); MONO # 0.3 10^3/uL (0.0-0.8); MONO % 4.2 % (0.0-5.0); NEUTROPHILS # 5.4 10^3/uL (1.5-8.5); NEUTROPHILS % 71.1 % (36.0-66.0); PLATELET COUNT, AUTOMATED 235 10^3/uL (150-450); RED BLOOD COUNT 3.85 10^6/uL (4.00-5.40); WHITE BLOOD COUNT 7.5 10^3/uL (4.0-10.0)
[2019-11-01 15:52] LABS: ALBUMIN 3.2 GM/DL (3.2-5.2); ALT/SGPT 35 U/L (12-78); BILIRUBIN,DIRECT < 0.1 MG/DL (0.0-0.2); BILIRUBIN,TOTAL 0.3 MG/DL (0.2-1.0); BLOOD UREA NITROGEN 9 MG/DL (7-18); CALCIUM LEVEL 8.4 MG/DL (8.5-10.1); CARBON DIOXIDE LEVEL 30 MEQ/L (21-32); CHLORIDE LEVEL 107 MEQ/L (98-107); CK-MB VALUE MASS < 1.0 NG/ML (<3.6); CPK CREATINE PHOSPHOKINASE 69 U/L (26-192); CREATININE FOR GFR 0.61 MG/DL (0.55-1.30); FREE T4 0.81 NG/DL (0.76-1.46); GLOMERULAR FILTRATION RATE > 60.0 (>60); GLUCOSE, FASTING 77 MG/DL (70-100); LIPASE 81 U/L (73-393); MB/CK RELATIVE INDEX 1.45 (< OR =4); POTASSIUM SERUM 3.9 MEQ/L (3.5-5.1); SODIUM LEVEL 143 MEQ/L (136-145); THYROID STIMULATING HORMONE 0.984 uIU/ML (0.358-3.740); TOTAL PROTEIN 6.7 GM/DL (6.4-8.2); TROPONIN I < 0.02 NG/ML (< 0.10)
[2019-11-01] MEDS ORDERED: ISOVUE-370 76% 100ML VIAL (Q9967) As Ordered ONE (16:05)
[2019-11-01] MEDS ORDERED: PIPERACILLIN/TAZOBACTAM SOD 3.375 GM in D5W MINI-BAG PLUS 50 ML IV ONE (17:15)
[2019-11-01] MEDS ORDERED: PIPERACILLIN/TAZOBACTAM SOD 4.5 GM in D5W MINI-BAG PLUS 50 ML IV ONE (17:15)
[2019-11-01] MEDS ORDERED: VANCOMYCIN HCL 1,000 MG, VIAL MATE ADAPTER 1 EACH in D5W 250 ML IV ONE ×2 (17:15→22:00)
[2019-11-01] MEDS ORDERED: ANUS2.5C2 PR (17:29)
[2019-11-01] MEDS ORDERED: NAPR250T4 PO (17:29)
[2019-11-01] MEDS ORDERED: NAPROXEN 250 MG TAB PO PRN (17:45)
[2019-11-01] MEDS ORDERED: IBUPROFEN 600 MG TAB PO PRN (17:45)
[2019-11-01] MEDS ORDERED: guaiFENesin DM LIQ 10ML UD PO PRN (17:45)
[2019-11-01] MEDS ORDERED: ONDANSETRON 4MG/2ML VIAL (J2405) IV PRN (17:45)
--- NOTE | 2019-11-01 17:52 | REP ---
CT ANGIOGRAM CHEST: TECHNIQUE: Axial contrast enhanced images from the thoracic inlet to the upper abdomen using 100 mL Isovue 370 intravenous contrast material with multiplanar reformations. There is no CT evidence of pulmonary embolism. There is no thoracic aortic aneurysm or dissection. The heart is normal in size. There is no pleural or pericardial effusion. There is no mediastinal, hilar, or chest wall lymphadenopathy. There is a small hiatal hernia. Minimal patch parenchymal opacities in the right lower lobe is compatible with minimal infiltrate just below the level of the right hilum. No abnormal parenchymal opacities are seen. IMPRESSION: No CT evidence of pulmonary embolism. Small hiatal hernia. Minimal right lower lobe infiltrate. Electronically Signed by Butch Kingsley MD 11/02/2019 03:57 P
[2019-11-01] MEDS ORDERED: PERCOCET 5MG/325MG TAB PO PRN (18:15)
[2019-11-01] MEDS ORDERED: MORPHINE 2 MG/ML 1ML VIAL (J2270) As Ordered ONE (18:22)
[2019-11-01] MEDS ORDERED: PERCOCET 5MG/325MG TAB PO ONE (18:30)
[2019-11-01] MEDS ORDERED: MORPHINE 2 MG/ML 1ML VIAL (J2270) IV ONE (18:30)
[2019-11-01 18:36] LABS: C REACTIVE PROTEIN QUANTITATIV 1.37 MG/DL (0.00-0.30); CK-MB VALUE MASS < 1.0 NG/ML (<3.6); CPK CREATINE PHOSPHOKINASE 40 U/L (26-192); TROPONIN I < 0.02 NG/ML (< 0.10)
--- NOTE | 2019-11-01 19:11 | HPE ---
DATE OF ADMISSION: 11/01/2019 CHIEF COMPLAINT: Chest pain, shortness of breath, and cough. HISTORY OF PRESENT ILLNESS: This is a 29-year-old female with a history of dilated cardiomyopathy from four years ago with ejection fraction (EF) of 45%, right-sided breast cancer without any metastatic lesions diagnosed 08/30/2019, underwent her chemotherapy last 10/21/[address] Abbasi in [place], presents after being exposed to her with upper respiratory infection (URI) symptoms with a cough, postnasal drip, and five-day history of Augmentin being taken for sinusitis with epigastric pain, chest pain that is pleuritic as well as a dry cough, decreased appetite, but no weight loss, with headache and dizziness, and diarrhea 2-3 times a day for the past two days which is watery. She also complains of dysuria and increased frequency and urgency without documented fever, chills, or flank pain. The patient denies any weight loss but has had very little appetite since she is doing her chemotherapy. She did receive Neulasta after her chemotherapy on 10/21/2019. The patient describes the chest pain as pleuritic and achy that lasts for about 15 minutes to half an hour, worse when she takes a deep breath, better when she has her head up and better when she takes Naprosyn. The patient denies any nausea or vomiting. Denies any postnasal drip, earache, or sore throat. In the emergency room (ER), she was found to have a right lower lobe infiltrate on CT of the chest. Afebrile at 97.7 with a normal white count of 7.5 but 71% neutrophils without bandemia. Hospitalist was called to admit for right lower lobe pneumonia in an immunocompromised patient undergoing chemotherapy for right breast cancer. PAST MEDICAL HISTORY: 1. Right breast cancer without any metastatic lesions, diagnosed 08/30/2019, undergoing chemotherapy in [place], last chemotherapy was 10/21/[address] Abbasi. The patient has had no resection and no radiation treatment. 2. dilated cardiomyopathy in 2014 with residual ejection fraction (EF) of 45%, follows with Dr. Ricky Das with repeat echocardiogram to be done. PAST SURGICAL HISTORY: 1. Left-sided port placement 09/29/2019. 2. Carpal tunnel release on the left hand. 3. Tubal ligation. ALLERGIES: GADOLINIUM CONTRAST MEDIUM causing vomiting. HOME MEDICATIONS: - aspirin 81 daily - candesartan 4 mg daily - spironolactone 25 daily - magnesium oxide 400 mg at bedtime - Toprol XL 150 mg at bedtime - Effexor 150 mg twice a day - Naprosyn 500 mg twice a day as needed for pain SOCIAL HISTORY: The patient denies smoking, alcohol or recreational drug use. She lives with her and three children. 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 FAMILY HISTORY: Father of unknown causes. Mother alive age 59 with ovarian cancer. She has healthy siblings, four sisters and three brothers. REVIEW OF SYSTEMS: Per history of present illness (HPI), 12-point system otherwise negative. PHYSICAL EXAMINATION: Temperature 97.7, pulse 92, respiratory rate 18, blood pressure 121/72, 99% on room air. GENERAL: The patient is awake, alert and oriented times three, answering questions appropriately. She has alopecia secondary to chemotherapy. Pupils are round and reactive to light. Extraocular muscles are intact. Normocephalic, atraumatic. The patient has no jugular venous distention or thyromegaly. No pharyngeal erythema or tonsillar exudates. The patient has a left-sided port noted, nontender, non-erythematous. No cellulitic changes. LUNGS: Clear to auscultation. She has right-sided basilar crackles, otherwise air entry is equal on both sides without any rales. HEART: S1, S2, sinus rhythm. No murmurs, rubs or gallops noted. ABDOMEN: Obese, soft, nontender, nondistended. EXTREMITIES: No clubbing, cyanosis, or pitting edema. SKIN: [place] in color, warm to touch. LABORATORY DATA: White blood cells 7.5, hemoglobin 10, hematocrit 33, platelet count 235, 71% neutrophils, 20% lymphocytes. Sodium 143, potassium 3.9, chloride 107, bicarbonate 30, BUN 9, creatinine 0.61, glucose 77, calcium 8.4, total bilirubin 0.3, direct bilirubin less than 0.1, AST 28, ALT 35, alkaline phosphatase 142, total CK 69, MB fraction less than 1, relative index 1.45, troponin I 0.02, repeat cardiac markers still pending, total protein 6.7, albumin 3.1, lipase 81, procalcitonin pending, TSH 0.984, free T4 0.81. Two sets of blood cultures are pending. Urinalysis: 2+ leukocyte esterase, 16 WBCs, 1+ bacteria. IMAGING STUDIES: CT chest shows minimal right lower lobe infiltrate, small hiatal hernia. No CT evidence of pulmonary embolism. EKG: Unavailable at this time. CT chest: Minimal right infiltrate. ASSESSMENT AND PLAN: This is a 29-year-old female with cardiomyopathy, ejection fraction (EF) of 45%, follows with Dr. Das, recent diagnosis in August 2019 of right breast cancer undergoing chemotherapy, last session was 10/21/[address] Abbasi in [place], currently with a right lower lobe infiltrate. 1. Right lower lobe pneumonia in immunocompromised patient undergoing chemotherapy for right breast cancer. The patient has been started on broad spectrum antibiotics with vancomycin for possible methicillin-resistant Staphylococcus aureus (MRSA). Check MRSA screen. Zosyn for broad coverage for possible Pseudomonas infection. We will check a sputum culture, urine legionella, urine streptococcal antigen, and procalcitonin. Monitor the patient's sedimentation rate and C-reactive protein (CRP) and monitor for fevers. Await sputum culture results. For symptomatic relief, supplemental oxygen if needed if oxygen status less than 88% and continue with Robitussin as needed. For pain, the patient may have Percocet or morphine for severe pain. 2. Chest pain, rule out acute coronary syndrome in a patient with cardiomyopathy. 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 Ricky Das. She is resumed back on her home medications, spironolactone, Atacand, metoprolol. Monitor the patient's urine function due to many possible nephrotoxic drugs and recent contrast study. 3. Obesity, body mass index (BMI) of 47.1. Monitor for sleep apnea and nocturnal desaturations. 4. Breast cancer, follows with oncologist in [place], recently received Neulasta. Monitor for further symptoms. 5. Abnormal urinalysis with complaints of dysuria with probable urinary tract infection present and diarrhea. Currently on Zosyn. 6. Antibiotic-induced diarrhea. Rule out Clostridium (C) difficile colitis as the patient has recently completed a five-day course of Augmentin as outpatient for sinusitis. 7. Deep vein thrombosis (DVT) prophylaxis with Lovenox. No signs of pulmonary embolism (PE) on CT chest. 8. Code status. Full code. 9. Diet is two-gram sodium diet.
[2019-11-01] MEDS: LEVALBUTEROL 1.25 MG/0.5 ML CONCENTRATE NEB NEB SCH (19:38)
[2019-11-01] MEDS: LACTOBACILLUS ACIDOPHILUS CAP (BACID) PO SCH (20:21)
[2019-11-01] MEDS: ENOXAPARIN 40 MG/0.4 ML SYRINGE (J1650) SC SCH (20:21)
[2019-11-01 21:30] VITALS: BP 124/78
[2019-11-01] MEDS: MAGNESIUM OXIDE 400 MG TAB (MAG-OX) PO SCH (21:41)
[2019-11-01] MEDS: VENLAFAXINE **XR** 75MG CAPSULE PO SCH (21:41)
[2019-11-01] MEDS: METOPROLOL SUCC (TopROL XL) 50MG **XL** TAB PO SCH (21:42)
[2019-11-01 22:00] VITALS: BP 124/78
[2019-11-01 22:30] LABS: CK-MB VALUE MASS < 1.0 NG/ML (<3.6); CPK CREATINE PHOSPHOKINASE 36 U/L (26-192); MB/CK RELATIVE INDEX 2.78 (< OR =4); TROPONIN I < 0.02 NG/ML (< 0.10)
[2019-11-02] MEDS: PIPERACILLIN/TAZOBACTAM SOD 4.5 GM in D5W MINI-BAG PLUS 50 ML IV SCH ×4 (01:22→21:15)
[2019-11-02] MEDS: VANCOMYCIN HCL 1,000 MG, VIAL MATE ADAPTER 1 EACH in D5W 250 ML IV SCH ×2 (03:23→11:29)
[2019-11-02 06:00] VITALS: BP 110/63
[2019-11-02 07:40] LABS: CK-MB VALUE MASS < 1.0 NG/ML (<3.6); CPK CREATINE PHOSPHOKINASE 50 U/L (26-192); TROPONIN I < 0.02 NG/ML (< 0.10)
[2019-11-02] MEDS: LEVALBUTEROL 1.25 MG/0.5 ML CONCENTRATE NEB NEB SCH ×6 (07:43→23:34)
[2019-11-02] MEDS: CANDESARTAN 4MG TABLET PO SCH (08:43)
[2019-11-02] MEDS: VENLAFAXINE **XR** 75MG CAPSULE PO SCH ×2 (08:43→21:15)
[2019-11-02] MEDS: LACTOBACILLUS ACIDOPHILUS CAP (BACID) PO SCH ×3 (08:43→17:11)
[2019-11-02] MEDS: SPIRONOLACTONE 25 MG TAB PO SCH (08:43)
--- NOTE | 2019-11-02 11:49 | IPN ---
DATE OF SERVICE: 11/02/2019 Briseyda is seen while rounding for the hospitalists. Admitted with suspected pneumonia. She is under active chemotherapy for right-sided breast cancer. Last chemotherapy was 10/21/2019. Being treated for suspected healthcare-associated pneumonia. Her methicillin-resistant Staphylococcus aureus (MRSA) screen is negative. Her respiratory panel is negative. Blood cultures are pending. Overall, she feels better than yesterday. Less short of breath. Less cough. PHYSICAL EXAMINATION: 110/63, pulse 73, respiratory rate 19, 95% oxygen (O2) saturation, 98 degrees. General appearance: She is resting comfortably, in no distress. Lungs: A few rhonchi. Heart: Regular rate and rhythm. Abdomen: Soft, nontender. No peripheral edema. LABORATORIES: Unfortunately, no laboratories were ordered for today. IMPRESSION: Healthcare-associated pneumonia. Based upon a small infiltrate on CT scan. PLAN: Will continue her Zosyn. Her MRSA by polymerase chain reaction (PCR) is negative. So, will stop the vancomycin. She looks quite good clinically; and if she continues to improve, could be discharged in the next few days.
[2019-11-02 14:00] VITALS: BP 124/76
[2019-11-02] MEDS ORDERED: diphenhydrAMINE 50 MG CAP PO ONE (14:00)
[2019-11-02] MEDS ORDERED: methylPREDNISolone INJ 40 MG/1 ML VIAL (J2920) IV ONE (14:00)
[2019-11-02] MEDS: diphenhydrAMINE 50 MG CAP PO PRN (18:54)
[2019-11-02] MEDS: ENOXAPARIN 40 MG/0.4 ML SYRINGE (J1650) SC SCH (21:14)
[2019-11-02] MEDS: MICONAZOLE-7 VAGINAL 2% CREAM 47.7 GM PV SCH (21:15)
[2019-11-02] MEDS: MAGNESIUM OXIDE 400 MG TAB (MAG-OX) PO SCH (21:15)
[2019-11-02 21:16] VITALS: BP 122/78
[2019-11-02] MEDS: METOPROLOL SUCC (TopROL XL) 50MG **XL** TAB PO SCH (21:16)
[2019-11-02 22:00] VITALS: BP 122/78
--- NOTE | 2019-11-02 22:00 | ECGEPIP ---
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
[2019-11-02 22:30] VITALS: BP 118/76
[2019-11-02 23:00] VITALS: BP 116/76
[2019-11-02] MEDS ORDERED: FLUCONAZOLE 50MG TABLET PO ONE (23:45)
[2019-11-02] MEDS ORDERED: DOCUSATE SODIUM 100 MG CAP PO PRN (23:45)
[2019-11-03 00:28] LABS: CK-MB VALUE MASS < 1.0 NG/ML (<3.6); CPK CREATINE PHOSPHOKINASE 37 U/L (26-192); TROPONIN I < 0.02 NG/ML (< 0.10)
[2019-11-03] MEDS: diphenhydrAMINE 50 MG CAP PO PRN ×2 (00:59→08:08)
[2019-11-03] MEDS: PIPERACILLIN/TAZOBACTAM SOD 4.5 GM in D5W MINI-BAG PLUS 50 ML IV SCH ×2 (01:32→08:07)
[2019-11-03] MEDS: LEVALBUTEROL 1.25 MG/0.5 ML CONCENTRATE NEB NEB SCH ×3 (04:00→11:11)
[2019-11-03 05:09] LABS: HEMATOCRIT 33.5 % (36.0-47.0); HEMOGLOBIN 10.4 g/dl (12.0-15.5); MEAN CORPUSCULAR HEMOGLOBIN 27.3 pg (27.0-33.0); MEAN CORPUSCULAR VOLUME 87.9 fl (80.0-96.0); PLATELET COUNT, AUTOMATED 249 10^3/uL (150-450); RED BLOOD COUNT 3.81 10^6/uL (4.00-5.40); WHITE BLOOD COUNT 8.8 10^3/uL (4.0-10.0)
[2019-11-03 05:44] LABS: BLOOD UREA NITROGEN 4 MG/DL (7-18); CALCIUM LEVEL 8.4 MG/DL (8.5-10.1); CARBON DIOXIDE LEVEL 28 MEQ/L (21-32); CHLORIDE LEVEL 110 MEQ/L (98-107); CK-MB VALUE MASS < 1.0 NG/ML (<3.6); CPK CREATINE PHOSPHOKINASE 101 U/L (26-192); CREATININE FOR GFR 0.64 MG/DL (0.55-1.30); GLOMERULAR FILTRATION RATE > 60.0 (>60); GLUCOSE, FASTING 103 MG/DL (70-100); MB/CK RELATIVE INDEX 0.99 (< OR =4); POTASSIUM SERUM 4.3 MEQ/L (3.5-5.1); SODIUM LEVEL 143 MEQ/L (136-145); TROPONIN I < 0.02 NG/ML (< 0.10)
[2019-11-03 06:00] VITALS: BP 104/64
[2019-11-03] MEDS: VENLAFAXINE **XR** 75MG CAPSULE PO SCH (08:06)
[2019-11-03] MEDS: MICONAZOLE-7 VAGINAL 2% CREAM 47.7 GM PV SCH (08:07)
[2019-11-03] MEDS: CANDESARTAN 4MG TABLET PO SCH (08:07)
[2019-11-03] MEDS: LACTOBACILLUS ACIDOPHILUS CAP (BACID) PO SCH ×2 (08:07→12:25)
[2019-11-03] MEDS: SPIRONOLACTONE 25 MG TAB PO SCH (08:07)
[2019-11-03 09:55] LABS: CK-MB VALUE MASS < 1.0 NG/ML (<3.6); CPK CREATINE PHOSPHOKINASE 32 U/L (26-192); MB/CK RELATIVE INDEX 3.12 (< OR =4); TROPONIN I < 0.02 NG/ML (< 0.10)
[2019-11-03] MEDS ORDERED: CEFD300CAP PO (12:31)
--- NOTE | 2019-11-03 13:00 | DSES ---
DATE OF ADMISSION: 11/01/2019 DATE OF DISCHARGE: _11/03/19 PRIMARY CARE PROVIDER: Lor Pandya, nurse practitioner PRINCIPAL DIAGNOSIS: Healthcare-associated pneumonia. SECONDARY DIAGNOSES: 1. Right-sided breast cancer under active chemotherapy. 2. with dilated cardiomyopathy, ejection fraction 45%. 3. History of depression. 4. Morbid obesity. HISTORY: Briseyda Armas was admitted with a small pneumonia seen on CT scan of the chest. She is getting chemotherapy for breast cancer. Details in history and physical from admission. HOSPITAL COURSE: The patient admitted to a medical bed, started on intravenous (IV) Zosyn. She responded well to this. She became less short of breath, and exercise tolerance improved on a daily basis. On day of discharge, she is eager to go home, and oxygen (O2) saturation is 96% on room air, and she is walking in the pandya without difficulty. Today, her blood pressure (BP) is 104/64, pulse 65, respiratory rate 18, 96% O2 saturation, 98.1 degrees. General appearance: Resting comfortably, in no distress. Lungs clear. Heart: Regular rate and rhythm. Abdomen: Soft, nontender. Trace peripheral edema. LABORATORIES: White count is 8.8, hemoglobin is 10.4, platelets 249. Sodium 143, potassium 4.3, BUN 4, creatinine 0.6, glucose 84. She had a lot of chest wall pain during this hospitalization. She actually had about four sets of cardiac enzymes, all of which were negative. "Rapid" urine screen for legionella and Streptococcus pneumo are still pending by the time of discharge. DISPOSITION: She is discharged home improved in stable condition. She will followup with Lor Pandya in the office in a week. Followup with oncology per their office. Her medications at discharge will continue to be candesartan 4 mg daily, ibuprofen as needed for pain, magnesium oxide 400 mg nightly, metoprolol succinate 150 mg nightly, Zofran 4 mg every 4 hours as needed for nausea, spironolactone 25 mg daily, venlafaxine ER 150 mg twice a day, Monistat cream over the counter as needed for yeast infection she has developed, cefdinir 300 mg twice a day for 7 more days which is her only new medication. [facility]
--- NOTE | 2019-11-03 17:16 | ECGEPIP ---
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
--- NOTE | 2019-11-03 21:46 | ECHO ---
DATE OF PROCEDURE: 11/02/2019 Date of : 1990 Age: 29 REFERRING PHYSICIAN: Yaz Varela MD PATIENT LOCATION: Room 4217 REASON FOR ECHOCARDIOGRAM: Heart failure, unspecified. 2D MEASUREMENTS: IVS: 1.0 cm LV: 4.7 cm LVPW: 1.1 cm LA: 3.1 cm Aorta: 2.9 cm RV: 3.6 cm DOPPLER MEASUREMENTS: Peak velocity across the aortic valve: 0.9 cm/s Peak velocity across the LVOT: 0.6 m/s Mitral E: 0.51, Mitral A: 0.48 with a ratio of 1.1 2D COMMENTS: 1. Mildly depressed global left ventricular systolic function with normal left ventricular size and normal left ventricular wall thickness. The estimated global left ventricular systolic ejection fraction is 45 to 50%. 2. Normal left atrium. Normal right atrium and right ventricle. 3. Normal aortic root. 4. The atrial septum appeared to be normal without evidence of defect or shunt. 5. No pericardial effusion seen. 6. The aortic valve, mitral valve, and tricuspid valve appear to be normal. The pulmonic valve appeared to be normal in limited views. The proximal pulmonary artery branches were not well visualized. DOPPLER: No significant valvular abnormalities detected, but trace tricuspid regurgitation. Assessment of the left ventricular diastolic function appeared to be normal. IMPRESSION 1. Probably mild global left ventricular systolic dysfunction with mild global hypokinesis. Assessment of the left ventricular diastolic function appeared to be normal. 2. No significant valvular heart disease. 3. This was compared with prior study on 10/20/2015 and at that time left ventricular ejection fraction (LVEF) was lower. Patient also had a study on 09/10/2019 and at that time LVEF seems to be slightly higher, probably low normal.
[2019-11-04 14:07] LABS: BODY FLUID CULTURE Not indicated. (.); LEGIONELLA ANTIGEN URINE Negative (Negative); ORGANISM ID Not indicated. (.); SPECIMEN SOURCE Urine (.); URINE STREP PNEUMONIAE ANTIGEN Negative (Negative)
== END 2019-11-03 13:26 | disposition home or self-care (01) | DRG 139 ==
LOC: M ED 13:27 → M ED INP 17:30 → M MSPAV 21:14
PROVIDERS: ADMIT General Practice; ATTEND General Practice
DX: J18.9 Pneumonia, unspecified organism (principal); I42.0 Dilated cardiomyopathy; C50.911 Malignant neoplasm of unspecified site of right female breast; Z68.43 Body mass index [BMI] 50.0-59.9, adult; E66.01 Morbid (severe) obesity due to excess calories; Z92.21 Personal history of antineoplastic chemotherapy; Z91.041 Radiographic dye allergy status; Z79.82 Long term (current) use of aspirin; Z86.59 Personal history of other mental and behavioral disorders

== ENCOUNTER 2019-12-09 13:31 | Emergency (ER) | payer BC ==
[~2019-12-09 13:31] MED LIST changes: +ANUS2.5C2 PR; +ASPI1CHW3 PO; -ASPI81CH44 PO; +CEFD300CAP PO; +ONDA-83 PO; -ONDA4TAB5 PO
[2019-12-09 14:14] LABS: HEMATOCRIT 34.5 % (36.0-47.0); HEMOGLOBIN 10.4 g/dl (12.0-15.5); MEAN CORPUSCULAR HEMOGLOBIN 27.4 pg (27.0-33.0); MEAN CORPUSCULAR HGB CONC 30.1 g/dl (32.0-36.5); PLATELET COUNT, AUTOMATED 295 10^3/uL (150-450); RED BLOOD COUNT 3.79 10^6/uL (4.00-5.40); WHITE BLOOD COUNT 6.7 10^3/uL (4.0-10.0)
[2019-12-09] MEDS ORDERED: NS 1,000 ML IV ONE ×2 (14:15→17:15)
--- NOTE | 2019-12-09 14:33 | REP ---
Portable chest x-ray: Single view. History: Chest pain. Comparison study: November 01, 2019. Findings: EKG monitoring electrodes overlie the chest. An [id number]-H-Hyyv catheter is seen in place unchanged. The lungs are well inflated and clear. The pleural angles are sharp. Heart size is normal. Pulmonary vasculature is not increased. Impression: No active disease. Electronically Signed by Silverio Lara MD 12/09/2019 02:23 P
[2019-12-09 14:37] LABS: ALBUMIN 3.2 GM/DL (3.2-5.2); ALT/SGPT 17 U/L (12-78); BILIRUBIN,DIRECT 0.1 MG/DL (0.0-0.2); BILIRUBIN,TOTAL 0.4 MG/DL (0.2-1.0); BLOOD UREA NITROGEN 6 MG/DL (7-18); CALCIUM LEVEL 8.5 MG/DL (8.5-10.1); CARBON DIOXIDE LEVEL 24 MEQ/L (21-32); CHLORIDE LEVEL 102 MEQ/L (98-107); CK-MB VALUE MASS < 1.0 NG/ML (<3.6); CPK CREATINE PHOSPHOKINASE 25 U/L (26-192); CREATININE FOR GFR 0.55 MG/DL (0.55-1.30); GLOMERULAR FILTRATION RATE > 60.0 (>60); GLUCOSE, FASTING 81 MG/DL (70-100); POTASSIUM SERUM 3.6 MEQ/L (3.5-5.1); SODIUM LEVEL 137 MEQ/L (136-145); TOTAL PROTEIN 6.6 GM/DL (6.4-8.2); TROPONIN I < 0.02 NG/ML (< 0.10)
[2019-12-09 14:58] LABS: ATYPICAL LYMPH 1 % (0-5); EOSINOPHILS 1 % (0-3); LYMPHOCYTES 16 % (16-44); METAMYELOCYTES 1 % (0-0); MONOCYTES 9 % (0-5); MYELOCYTES 2 % (0-0); NEUTROPHILS 59 % (28-66); PLATELET ESTIMATE NORMAL (NORMAL)
[2019-12-09 14:59] LABS: TOXIC GRANULATION 1+
[2019-12-09 15:00] LABS: ANISOCYTOSIS 1+
[2019-12-09] MEDS ORDERED: ISOVUE-370 76% 100ML VIAL (Q9967) As Ordered ONE (15:23)
[2019-12-09 15:38] LABS: INR 1.13; PROTHROMBIN TIME 14.3 SECONDS (11.8-14.0)
[2019-12-09 15:39] LABS: PARTIAL THROMBOPLASTIN TIME 34.2 SECONDS (25.0-38.4)
--- NOTE | 2019-12-09 16:28 | REP ---
CT pulmonary angiogram: With IV contrast. History: Chest pain. Right breast malignancy. Comparison studies: Comparison study 11/01/2019. Contrast dose: 75 ML of Isovue [address] technique: Helical scanning is acquired and overlapping 1.5 mm and contiguous 3 mm axial images are reformatted. In addition, maximum intensity projection and multiplanar re-formation images are generated in sagittal and coronal imaging projections. CT pulmonary angiographic findings: There is good opacification in the pulmonary arterial tree. There is no vessel cutoff or filling defect to suggest pulmonary embolism. Thoracic aorta is normal in caliber and homogeneous in contrast enhancement. No hilar or mediastinal mass or adenopathy is observed. No pleural or pericardial effusion is seen. No infiltrate or atelectasis seen in the lung leone. No pulmonary mass or significant pulmonary nodule. Incidental note is made of a tiny tracheal diverticulum at the thoracic inlet to the right and posterior to the trachea. This is unchanged. There is a left-sided Xcrlcm-Q-Eymf catheter. No bony lesion is appreciated. Impression: No CT evidence of pulmonary embolus. No active disease. Electronically Signed by Silverio Lara MD 12/09/2019 04:59 P
[2019-12-09] MEDS ORDERED: METOPROLOL TART 25 MG TABLET PO ONE (17:15)
[2019-12-09 17:33] VITALS: BP 110/69
[2019-12-09 18:45] LABS: CK-MB VALUE MASS < 1.0 NG/ML (<3.6); CPK CREATINE PHOSPHOKINASE 22 U/L (26-192); MB/CK RELATIVE INDEX 4.55 (< OR =4); TROPONIN I < 0.02 NG/ML (< 0.10)
[2019-12-09 20:25] VITALS: BP 136/66
--- NOTE | 2019-12-10 20:19 | ECGEPIP ---
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
--- NOTE | 2019-12-10 20:22 | ECGEPIP ---
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
== END 2019-12-09 20:26 | disposition home or self-care (01) ==
LOC: M ED 13:31
DX: R00.0 Tachycardia, unspecified (principal); R07.89 Other chest pain; R05 Cough; I50.9 Heart failure, unspecified; G47.33 Obstructive sleep apnea (adult) (pediatric); F32.9 Major depressive disorder, single episode, unspecified; C50.911 Malignant neoplasm of unspecified site of right female breast; Z92.21 Personal history of antineoplastic chemotherapy; Z95.9 Presence of cardiac and vascular implant and graft, unspecified; Z79.899 Other long term (current) drug therapy; Z91.040 Latex allergy status; Z88.1 Allergy status to other antibiotic agents
CPT/HCPCS: 36415; 71045; 71275; 80048; 80076; 82550; 82553; 84484; 85025; 85610; 85730; 87040; 87077; 87186; 87486; 87581; 87633; 87798; 93005; 93041; 94760; 96360; 96361; 99285; Q9967

== ENCOUNTER 2019-12-11 07:49 | Inpatient (IN) | payer BC ==
[~2019-12-11] VITALS: Ht 162.6 cm; Wt 125.1 kg
[2019-12-11] MEDS ORDERED: NS 1,000 ML IV ONE (08:15)
[2019-12-11] MEDS ORDERED: ACETAMINOPHEN 325 MG TAB PO ONE (08:15)
--- NOTE | 2019-12-11 08:46 | REP ---
AP PORTABLE CHEST: 12/11/2019. Comparison: CT angiogram and AP chest 12/09/2019, 11/01/2019. Clinical history: Fever, chemotherapy patient. Findings: The lungs less well inflated than on the previous study with some crowding of markings in the bases but no effusion, dense consolidation or parenchymal mass is seen or definite nodules. There is an indwelling left jugular port catheter, unchanged. Heart size magnified by portable technique and lower level of inflation compared to the prior study. No vascular redistribution or edema. The bones are intact. No free air. Impression: 1. AP portable chest, hypoinflated compared to previous study. This exaggerates heart size, crowds markings in the bases but does not reveal infiltrate, effusion or other acute finding. 2. Indwelling port catheter via the left jugular route. Electronically Signed by John Quispe MD 12/11/2019 08:37 A
[2019-12-11 09:05] LABS: HEMATOCRIT 28.9 % (36.0-47.0); HEMOGLOBIN 8.8 g/dl (12.0-15.5); MEAN CORPUSCULAR HEMOGLOBIN 27.4 pg (27.0-33.0); MEAN CORPUSCULAR HGB CONC 30.4 g/dl (32.0-36.5); PLATELET COUNT, AUTOMATED 291 10^3/uL (150-450); RED BLOOD COUNT 3.21 10^6/uL (4.00-5.40); WHITE BLOOD COUNT 12.3 10^3/uL (4.0-10.0)
[2019-12-11 09:41] LABS: EOSINOPHILS 1 % (0-3); LYMPHOCYTES 4 % (16-44); METAMYELOCYTES 2 % (0-0); MONOCYTES 7 % (0-5); NEUTROPHILS 76 % (28-66)
[2019-12-11 09:42] LABS: ANISOCYTOSIS 1+; PLATELET ESTIMATE NORMAL (NORMAL)
[2019-12-11] MEDS ORDERED: ONDA-83 PO (09:42)
[2019-12-11 10:06] LABS: ALT/SGPT 15 U/L (12-78); BILIRUBIN,DIRECT < 0.1 MG/DL (0.0-0.2); BILIRUBIN,TOTAL 0.2 MG/DL (0.2-1.0); BLOOD UREA NITROGEN 4 MG/DL (7-18); CALCIUM LEVEL 8.2 MG/DL (8.5-10.1); CARBON DIOXIDE LEVEL 28 MEQ/L (21-32); CHLORIDE LEVEL 105 MEQ/L (98-107); CK-MB VALUE MASS < 1.0 NG/ML (<3.6); CPK CREATINE PHOSPHOKINASE 28 U/L (26-192); CREATININE FOR GFR 0.58 MG/DL (0.55-1.30); GLOMERULAR FILTRATION RATE > 60.0 (>60); GLUCOSE, FASTING 99 MG/DL (70-100); MB/CK RELATIVE INDEX 3.57 (< OR =4); NT-PRO BNP 63 PG/ML (<125); POTASSIUM SERUM 3.7 MEQ/L (3.5-5.1); SODIUM LEVEL 140 MEQ/L (136-145); THYROXINE (T4) 7.8 UG/DL (4.5-12.0); TOTAL PROTEIN 6.1 GM/DL (6.4-8.2); TROPONIN I < 0.02 NG/ML (< 0.10)
[2019-12-11] MEDS ORDERED: PIPERACILLIN/TAZOBACTAM SOD 4.5 GM in D5W MINI-BAG PLUS 50 ML IV ONE (10:45)
[2019-12-11 11:17] LABS: C REACTIVE PROTEIN QUANTITATIV 9.45 MG/DL (0.00-0.30)
[2019-12-11] MEDS ORDERED: DOXYCYCLINE HYCLATE 100 MG in D5W MINI-BAG PLUS 100 ML IV SCH ×2 (12:00→14:00)
[2019-12-11 12:30] VITALS: BP 122/75
[2019-12-11] MEDS ORDERED: IBUPROFEN 600 MG TAB PO PRN (15:00)
[2019-12-11] MEDS ORDERED: ONDANSETRON 4 MG TAB (S0181) PO PRN (15:00)
--- NOTE | 2019-12-11 16:39 | ECGEPIP ---
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
[2019-12-11] MEDS: cefTRIAXone SOD 2 GM in D5W MINI-BAG PLUS 50 ML IV SCH (16:42)
[2019-12-11] MEDS ORDERED: PIPERACILLIN/TAZOBACTAM SOD 3.375 GM in D5W MINI-BAG PLUS 50 ML IV SCH (17:00)
[2019-12-11] MEDS: LINEZOLID 600 MG in IV 1 EA IV SCH (17:50)
[2019-12-11] MEDS: MAGNESIUM OXIDE 400 MG TAB (MAG-OX) PO SCH (20:28)
[2019-12-11] MEDS: VENLAFAXINE **XR** 75MG CAPSULE PO SCH (20:28)
[2019-12-11] MEDS: METOPROLOL SUCC (TopROL XL) 50MG **XL** TAB PO SCH (20:29)
[2019-12-11] MEDS: guaiFENesin SYRUP 200 MG/10 ML UDC PO PRN (20:32)
[2019-12-11 22:00] VITALS: BP 106/70
[2019-12-12 06:00] VITALS: BP 98/62
[2019-12-12] MEDS: LINEZOLID 600 MG in IV 1 EA IV SCH ×2 (06:41→18:17)
[2019-12-12 07:02] LABS: HEMATOCRIT 33.4 % (36.0-47.0); HEMOGLOBIN 9.9 g/dl (12.0-15.5); MEAN CORPUSCULAR HEMOGLOBIN 27.5 pg (27.0-33.0); MEAN CORPUSCULAR HGB CONC 29.6 g/dl (32.0-36.5); MEAN CORPUSCULAR VOLUME 92.8 fl (80.0-96.0); PLATELET COUNT, AUTOMATED 221 10^3/uL (150-450); WHITE BLOOD COUNT 7.4 10^3/uL (4.0-10.0)
[2019-12-12 07:24] LABS: BLOOD UREA NITROGEN 2 MG/DL (7-18); CARBON DIOXIDE LEVEL 28 MEQ/L (21-32); CHLORIDE LEVEL 109 MEQ/L (98-107); CREATININE FOR GFR 0.62 MG/DL (0.55-1.30); GLOMERULAR FILTRATION RATE > 60.0 (>60); GLUCOSE, FASTING 89 MG/DL (70-100); POTASSIUM SERUM 3.6 MEQ/L (3.5-5.1); SODIUM LEVEL 140 MEQ/L (136-145)
[2019-12-12 07:53] LABS: ATYPICAL LYMPH 1 % (0-5); EOSINOPHILS 2 % (0-3); LYMPHOCYTES 11 % (16-44); METAMYELOCYTES 2 % (0-0); MONOCYTES 4 % (0-5); MYELOCYTES 1 % (0-0); NEUTROPHILS 71 % (28-66)
[2019-12-12 07:54] LABS: ANISOCYTOSIS 1+; OVALOCYTES 1+; PLATELET ESTIMATE NORMAL (NORMAL); POIKILOCYTOSIS 1+; POLYCHROMASIA 1+
[2019-12-12] MEDS: SPIRONOLACTONE 25 MG TAB PO SCH (08:21)
[2019-12-12] MEDS: ENOXAPARIN 40 MG/0.4 ML SYRINGE (J1650) SC SCH (08:21)
[2019-12-12] MEDS: VENLAFAXINE **XR** 75MG CAPSULE PO SCH ×2 (08:21→20:38)
[2019-12-12] MEDS: CANDESARTAN 4MG TABLET PO SCH (08:21)
--- NOTE | 2019-12-12 08:25 | HPE ---
DATE OF ADMISSION: 12/11/2019 CHIEF COMPLAINT: Fever, cough. HISTORY OF PRESENTING ILLNESS: This is a 29-year-old female with history of dilated cardiomyopathy, ejection fraction 45%, right-sided breast cancer without any metastatic lesions diagnosed 08/30/2019, last chemotherapy was 12/02/2019 status post Neulasta by Dr. Abbasi in [place], presents to the emergency room with acute onset of fever today of 102.2, taken 2 tablets of Tylenol. She has also noted a dry cough for the past 2 days and has been exposed to her sick daughter who also has upper respiratory infection. She otherwise, denies any rhinorrhea, sore throat, changes in vision, headaches, joint pains, muscle aches. Denies any ear discharge, ear pain, nausea or vomiting, diarrhea, abdominal pain, dysuria, urgency or frequency. She denies any back pain, dizziness, lightheadedness or shortness of breath, palpitations. Patient was evaluated in the emergency room (ER) on 12/09/2019 due to atypical chest pain after receiving Neulasta. CT chest was negative for pulmonary embolism, pneumonia, without any active disease. Respiratory panel at that time was negative, but blood culture taken grew Streptococcus pneumoniae. Patient received one dose of Zosyn this morning in the emergency room. She was tachycardic and received some intravenous (IV) fluid without any worsening shortness of breath. She was 94% on room air. Hospitalist was called to admit for fever secondary to pneumococcal bacteremia. Patient does have a right-sided port, which she uses for chemotherapy, which was placed 09/29/2019. PAST MEDICAL HISTORY: 1. dilated cardiomyopathy 2014, ejection fraction 45%, follows with Dr. Ricky Das. 2. Right breast cancer without metastatic lesions diagnosed 08/30/2019. Undergoing chemotherapy with Dr. Abbasi. Last chemotherapy was 12/02/2019. No resection. No radiation. 3. Morbid obesity, body mass index (BMI) 46. 4. Hemorrhoids PAST SURGICAL HISTORY: 1. Left-sided port placement 09/29/2019. 2. Carpal tunnel release of the left hand. 3. Tubal ligation. ALLERGIES: To GADOLINIUM CONTRAST causing vomiting, VANCOMYCIN causing rash. HOME MEDICATIONS: - candesartan 4 mg daily - ibuprofen 600 every 6 as needed - magnesium oxide 400 mg nightly - metoprolol 150 mg nightly - Zofran 4 mg as needed every 4 for nausea - spironolactone 25 mg daily - venlafaxine 75 mg twice a day - hydrocortisone as needed for hemorrhoids SOCIAL HISTORY: Denies smoking, alcohol or recreational drug use. Lives with her and three children. 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 FAMILY HISTORY: Four sisters, three brothers alive and well, no medical problems. Father of unknown causes. Mother alive age 59 with ovarian cancer. REVIEW OF SYSTEMS: Per history of presenting illness (HPI). 12-point system otherwise negative. PHYSICAL EXAMINATION: Temperature - maximum temperature (Tmax) of 102.2, current temperature is 98.5. Pulse of 100, respiratory 20, blood pressure 121/75, 99% on 2 liters nasal cannula, 94% on room air. Generally patient is awake, alert, oriented times three, answering questions appropriately. No respiratory distress. No cyanosis. No use of respiratory accessory muscles. Able to speak in full sentences. She has alopecia due to chemotherapy. No jugular venous distention (JVD). No thyromegaly. No cervical lymphadenopathy. Moist mucous membranes. Lungs: Air entry is equal bilaterally. Diminished breath sounds at the bases but clear to auscultation. No wheezing, rales or rhonchi. Heart: S1, S2, sinus tachycardia. No murmurs, rubs or gallops. Abdomen is obese, soft, nontender and nondistended. Positive bowel sounds. Extremities: Trace edema bilaterally. Left-sided port is noted without any erythema or tenderness . LABORATORY DATA: White count 12.3, hemoglobin 8.8, hematocrit 28.9, platelet count of 91. Sodium 140, potassium 3.7, chloride 105, bicarbonate 28, BUN 4, creatinine 0.58, glucose of 99, lactic acid 1.6, calcium 8.2, magnesium 2, total bilirubin 0.2, direct bilirubin less than 0.1, AST 10, ALT 15, alkaline phosphatase 114, total CK 28, MB fraction less than 1, troponin less than 0.02, CRP 9.45, BNP of 83, total protein of 6.1, albumin of 3. Procalcitonin is pending. TSH 1.31, thyroxine 7.8. Respiratory panel is negative. Blood culture on 12/09/[address] chest on 12/09/2019 no effusion, embolism, edema or infiltrate. ASSESSMENT AND PLAN: This is a 29-year-old female with recent diagnosis of right breast cancer diagnosed August 2019 with left-sided port placement 09/29/2019 undergoing chemotherapy in [place] with Dr. Abbasi, dilated cardiomyopathy in 2014 with ejection fraction of 45%, sees Dr. Das in [facility] presents to the emergency room with 2 day history of dry cough, acute onset of fever today of 102.2. She was seen in the emergency room for atypical chest pain on 12/09/2019 after her last chemotherapy 12/02/2019. CT chest showed no pulmonary embolism, edema, infiltrate or effusion. Blood culture at that time grew streptococcal pneumoniae. Hospitalist was called to admit today for further evaluation and treatment of fever with known pneumococcal bacteremia. Active issues are: 1. Pneumococcal bacteremia detected on blood culture on 12/09/2019 when she was seen in the emergency room for atypical chest pain and evaluated with CT chest which showed no pneumonia, infiltrate, effusion or pulmonary edema. Patient is allergic to vancomycin causing a rash, therefore, she will be given Zyvox 600 mg IV every 12 hours for 10 days as well as ceftriaxone 2 grams IV every 24 hours. Two more sets of blood cultures were obtained today as well as procalcitonin, sedimentation rate, and C-reactive protein (CRP). 2-D echo will be performed to rule out endocarditis, which is very unlikely, but possible with gram positive bacteremia. Port appears to be clean but will obtain blood cultures again tomorrow to check for clearance. Infectious disease specialist will be consulted on Friday to determine if patient can be discharged on monotherapy depending on blood culture results. 2. Right-sided breast cancer. Undergoing chemotherapy with Dr. Abbasi with last chemo given 12/02/2019 and Neulasta given at that time as well. Patient had complained of atypical chest pain on 12/09/2019, but currently has no new complaints at this time. She is due for surgery in 1 month's time. Will obtain records from Dr. Abbasi's office on Friday. 3. Nonischemic cardiomyopathy secondary to dilated cardiomyopathy with ejection fraction (EF) of 45%. Repeat echo will be performed. Patient is continued on her home medications of candesartan, spironolactone, metoprolol. 4. Morbid obesity, BMI 46. Outpatient followup. Check lipid profile and A1c level in the morning. 5. Deep venous thrombosis (DVT) prophylaxis with Lovenox subcu. MTDD
[2019-12-12 14:23] VITALS: BP 117/83
[2019-12-12] MEDS: guaiFENesin SYRUP 200 MG/10 ML UDC PO PRN ×2 (14:29→18:38)
--- NOTE | 2019-12-12 14:54 | IPNPDOC ---
Date Seen The patient was seen on 12/12/19. Progress Note SUBJECTIVE: Patient is a -year-old [RACE] [GENDER] with OBJECTIVE PHYSICAL EXAMINATION: VITAL SIGNS: Please see below. GENERAL: HEENT: CARDIOVASCULAR: . RESPIRATORY: . ABDOMINAL: EXTREMITIES: NEUROLOGICAL: PSYCHOLOGICAL: LABORATORY DATA, IMAGING STUDIES, MICROBIOLOGY: Please see below. Echocardiogram: . DVT prophylaxis ordered?: ASSESSMENT AND PLAN: This is a -year-old [RACE] [GENDER] with . PROBLEMS: 1. : . 2. : . 3. : . DISPOSITION: . VS, I&O, 24H, Fishbone Vital Signs/I&O Contact information: [phone] Vital Signs Date Time Temp Pulse Resp B/P (MAP) Pulse Ox O2 Delivery O2 Flow Rate FiO2 12/12/19 08:00 2.0 12/12/19 06:00 97.3 86 18 98/62 (74) 98 Room Air I&O- Last 24 Hours up to 6 AM 12/12/19 06:00 Intake Total 2150 ml Output Total 2600 ml Balance -450 ml Laboratory Data 24H LABS Laboratory Tests 2 12/12/19 06:29: Immature Granulocyte % (Auto) , Nucleated Red Blood Cells % (auto) 1.2H, Neutrophils 71H, Band Neutrophils 8, Lymphocytes (Manual) 11L, Monocytes (Manual) 4, Eosinophils (Manual) 2, Metamyelocytes 2H, Myelocytes 1H, Atypical Lymphocytes 1, Polychromasia 1+, Poikilocytosis 1+, Anisocytosis 1+, Ovalocytes 1+, Platelet Estimate NORMAL, Anion Gap 3L, Glomerular Filtration Rate > 60.0, Calcium Level 9.0 CBC/BMP Laboratory Tests 12/12/19 06:29 Microbiology Microbiology 12/12/19 Blood Culture, Received Pending 12/12/19 Blood Culture, Received Pending 12/11/19 Blood Culture - Preliminary, Resulted No growth after 24 hours . All specim... 12/11/19 Blood Culture - Preliminary, Resulted No growth after 24 hours . All specim... 12/11/19 Urine Culture - Final, Complete 12/11/19 Group A Streptococcus Screen (JARET) - Final, Complete 12/11/19 Respiratory Virus Panel (PCR) (JARET) - Final, Complete 12/11/19 Blood Culture - Preliminary, Resulted DELBERT BLAIR MD Dec 12, 2019 14:54
[2019-12-12] MEDS: cefTRIAXone SOD 2 GM in D5W MINI-BAG PLUS 50 ML IV SCH (17:29)
[2019-12-12] MEDS: MAGNESIUM OXIDE 400 MG TAB (MAG-OX) PO SCH (20:38)
[2019-12-12] MEDS: METOPROLOL SUCC (TopROL XL) 50MG **XL** TAB PO SCH (20:40)
[2019-12-12 22:00] VITALS: BP 122/78
[2019-12-12] MEDS ORDERED: SODIUM CHLORIDE 0.9% INJ 10 ML SYR IV PRN ×2 (23:00→23:15)
[2019-12-13 06:00] VITALS: BP 101/63
[2019-12-13] MEDS: LINEZOLID 600 MG in IV 1 EA IV SCH (06:05)
[2019-12-13 06:30] LABS: HEMATOCRIT 29.2 % (36.0-47.0); HEMOGLOBIN 8.8 g/dl (12.0-15.5); MEAN CORPUSCULAR HEMOGLOBIN 27.4 pg (27.0-33.0); MEAN CORPUSCULAR HGB CONC 30.1 g/dl (32.0-36.5); PLATELET COUNT, AUTOMATED 259 10^3/uL (150-450); RED BLOOD COUNT 3.21 10^6/uL (4.00-5.40); WHITE BLOOD COUNT 9.6 10^3/uL (4.0-10.0)
[2019-12-13 06:57] LABS: BASOPHILS 1 % (0-1); HYPOCHROMASIA 1+; LYMPHOCYTES 10 % (16-44); MONOCYTES 5 % (0-5); NEUTROPHILS 84 % (28-66); PLATELET ESTIMATE NORMAL (NORMAL); POLYCHROMASIA 1+
[2019-12-13 06:59] LABS: BLOOD UREA NITROGEN 3 MG/DL (7-18); CALCIUM LEVEL 8.5 MG/DL (8.5-10.1); CARBON DIOXIDE LEVEL 29 MEQ/L (21-32); CHLORIDE LEVEL 107 MEQ/L (98-107); CREATININE FOR GFR 0.58 MG/DL (0.55-1.30); GLOMERULAR FILTRATION RATE > 60.0 (>60); GLUCOSE, FASTING 91 MG/DL (70-100); POTASSIUM SERUM 3.4 MEQ/L (3.5-5.1); SODIUM LEVEL 142 MEQ/L (136-145)
--- NOTE | 2019-12-13 07:27 | ECHO ---
DATE OF PROCEDURE: 12/11/2019 DATE OF : 1990 AGE: 29 GENDER: Female. HEIGHT: 64 inches. Weight: 268 pounds. BODY SURFACE AREA: 2.22 meters squared. LOCATION: Inpatient [address] [place] [address], room 5137. REFERRING PHYSICIAN: Dr. Yaz Varela INDICATION: Gram-positive bacteremia, rule out endocarditis. MEASUREMENTS 2D MEASUREMENTS: RV - 3.5 cm LV - 5.0 cm Septum 1.0 cm LV - 1.0 cm Aortic root 3.2 cm LA - 3.5 cm LVEF 65% DOPPLER MEASUREMENTS: AV - 1.32 m/s LVOT - 0.85 m/s LVOT diameter - 2.1 cm MV - E 80, A 66, E/E ratio 1.2 Early mitral deceleration time 145 ms E prime medial 9.5 A prime medial 13.8 E prime lateral 13.6 PV - 0.85 m/s Pulmonary artery deceleration time 106 ms PASP 35 mmHg IVC - 1.5 cm COMMENTS: Sinus tachycardia without intraventricular conduction disturbance. Technically challenging study in light of the patient's body habitus, but diagnostically useful information was still obtained. Normal left ventricular size, wall thickness and wall motion. Normal left atrial size and Doppler assessment of LV diastolic function and estimated mean left atrial pressure. Normal right heart chamber sizes and motion with Doppler evidence of borderline to mild pulmonary hypertension. Normal IVC size and collapse against an elevated central venous pressure. No apparent vegetation was observed. The absence of a functional valvular abnormality is somewhat against endocarditis, even though this patient's body habitus makes imaging somewhat more challenging. cc: Ricky Das MD
[2019-12-13] MEDS ORDERED: POTASSIUM CHLORIDE 10 MEQ SR TABLET PO ONE (08:00)
[2019-12-13] MEDS: SPIRONOLACTONE 25 MG TAB PO SCH (08:18)
[2019-12-13] MEDS: VENLAFAXINE **XR** 75MG CAPSULE PO SCH ×2 (08:18→22:24)
[2019-12-13] MEDS: CANDESARTAN 4MG TABLET PO SCH (08:18)
[2019-12-13] MEDS: ENOXAPARIN 40 MG/0.4 ML SYRINGE (J1650) SC SCH (08:19)
[2019-12-13] MEDS: SODIUM CHLORIDE 0.9% INJ 10 ML SYR IV SCH (08:19)
[2019-12-13] MEDS ORDERED: SODIUM CHLORIDE 0.9% INJ 10 ML SYR IV SCH (09:00)
[2019-12-13 14:00] VITALS: BP 117/76
[2019-12-13] MEDS: cefTRIAXone SOD 2 GM in D5W MINI-BAG PLUS 50 ML IV SCH (16:40)
[2019-12-13] MEDS: guaiFENesin SYRUP 200 MG/10 ML UDC PO PRN ×2 (17:17→22:33)
--- NOTE | 2019-12-13 20:12 | IPN ---
DATE: 12/12/2019 Due to previous reaction to vancomycin causing rash, the patient is reluctant to take vancomycin. Streptococcus pneumoniae found on blood culture on 12/09/2019 and gram-positive found on 12/11/2019 blood culture. Denies any fever, chills overnight. No nausea, vomiting, chest pain, pressure, tightness, dysuria, urgency, frequency, abdominal pain, epigastric pain, rhinorrhea, runny nose, cough, palpitations, lightheadedness. Complains of generalized weakness. PHYSICAL EXAMINATION: VITAL SIGNS: Temperature 97.3, pulse 86, respiratory rate 18, blood pressure 98/62, 98% on room air. GENERAL : Awake, alert, oriented times three. Answering questions appropriately. No jugular venous distention (JVD) or thyromegaly. The patient has alopecia due to chemotherapy. No pallor, icterus, jaundice. No cervical lymphadenopathy or thyromegaly. LUNGS: Clear to auscultation. No wheezing, rales or rhonchi. HEART: S1, S2. Sinus rhythm. ABDOMEN: Obese, soft, nontender, nondistended. Normoactive bowel sounds. EXTREMITIES: Trace edema. LABORATORY DATA: White count 7.4, hemoglobin 9.9, hematocrit 33, platelet count 221. Sodium 140, potassium 3.6, chloride 109, bicarbonate 20, BUN 2, creatinine 0.62, glucose 89. Two sets of blood cultures on 12/12/2019 pending. 12/11/2019 gram-positive cocci in pairs and chains. 12/09/2019 blood culture with Streptococcus pneumoniae. Respiratory panel on 12/09/2019 negative. ASSESSMENT AND PLAN: This is a 29 with cardiomyopathy, follows with Dr. Ricky Das, ejection fraction of 45%, right breast cancer without metastatic lesion diagnosed in August 2019, undergoing chemotherapy, last chemotherapy was 12/02/2019, morbid obesity, hemorrhoids, who presented to the emergency room with fever, found to have the followin. Pneumococcal bacteremia detected on blood culture on 12/09/2019 when the patient was seen in the emergency room complaining of atypical chest pain. CT of the chest showed no pneumonia, infiltrate, effusion, pulmonary edema or pulmonary embolism. The patient is refusing vancomycin due to previous allergic reaction causing erythematous rash. She is currently on Zyvox 600 mg IV every 12 hours and ceftriaxone 2 grams IV every 24 hours for 10 days. Repeat blood cultures remain negative and pending. 2-D echo to rule out endocarditis, which is unlikely. Port appears to be clean. Cultures obtained. Infectious disease consult on Friday to decide on duration of medical treatment, de-escalation of antibiotics. 2. Right sided breast cancer. Last chemotherapy was on 12/02/2019. Neulasta given at that time as well. The patient had complained of atypical chest pain on 12/09/2019 but currently has no complaints. CT of the chest was negative for pulmonary embolism. 3. Nonischemic cardiomyopathy secondary to dilated cardiomyopathy, ejection fraction of 45%. Continued on her home medications of candesartan, spironolactone, metoprolol with holding parameters. Body Mass Index (BMI) of 46 with morbid obesity. Outpatient followup to rule out metabolic syndrome. Check A1/c and lipid panel. [facility]
[2019-12-13 22:00] VITALS: BP 116/77
[2019-12-13] MEDS: MAGNESIUM OXIDE 400 MG TAB (MAG-OX) PO SCH (22:24)
[2019-12-13 22:25] VITALS: BP 118/75
[2019-12-13 22:27] VITALS: BP 118/75
[2019-12-13] MEDS: METOPROLOL SUCC (TopROL XL) 50MG **XL** TAB PO SCH (22:27)
[2019-12-14 06:00] VITALS: BP 105/70
[2019-12-14 06:58] LABS: BASO # 0.1 10^3/uL (0.0-0.2); BASO % 0.9 % (0.0-1.0); EOS # 0.1 10^3/uL (0.0-0.5); EOS % 0.7 % (0.0-3.0); HEMATOCRIT 31.5 % (36.0-47.0); HEMOGLOBIN 9.3 g/dl (12.0-15.5); LYMPH # 1.2 10^3/uL (1.5-5.0); LYMPH % 16.7 % (24.0-44.0); MEAN CORPUSCULAR HGB CONC 29.5 g/dl (32.0-36.5); MEAN CORPUSCULAR VOLUME 91.6 fl (80.0-96.0); MONO # 0.4 10^3/uL (0.0-0.8); NEUTROPHILS # 4.9 10^3/uL (1.5-8.5); NEUTROPHILS % 70.8 % (36.0-66.0); PLATELET COUNT, AUTOMATED 271 10^3/uL (150-450); RED BLOOD COUNT 3.44 10^6/uL (4.00-5.40)
[2019-12-14 07:23] LABS: BLOOD UREA NITROGEN 4 MG/DL (7-18); CALCIUM LEVEL 8.7 MG/DL (8.5-10.1); CARBON DIOXIDE LEVEL 28 MEQ/L (21-32); CHLORIDE LEVEL 110 MEQ/L (98-107); CREATININE FOR GFR 0.64 MG/DL (0.55-1.30); GLOMERULAR FILTRATION RATE > 60.0 (>60); GLUCOSE, FASTING 90 MG/DL (70-100); POTASSIUM SERUM 3.9 MEQ/L (3.5-5.1); SODIUM LEVEL 143 MEQ/L (136-145)
--- NOTE | 2019-12-14 08:57 | IPN ---
DATE: 12/13/2019 Patient still coughs with white sputum persistent. No dyspnea on exertion or paroxysmal nocturnal dyspnea (PND) orthopnea. Patient has no fever overnight. White count is normal. No nausea, vomiting, diarrhea. No epigastric pain, sore throat. Patient denies any postnasal drip. Echo ejection fraction is 65%. Diastolic dysfunction. Doppler evidence of mild pulmonary hypertension. PHYSICAL EXAMINATION: Vitals: Temperature 97.7, pulse 92, respiratory rate 18, blood pressure 101/63, 94% on room air. Generally, patient is awake, alert, oriented times three answering questions appropriately. No jugular venous distention (JVD). No thyromegaly. No cervical lymphadenopathy. Lungs diminished but clear to auscultation. No wheezing or rales. Heart S1, S2, sinus rhythm. Abdomen is soft, nontender, nondistended. Positive bowel sounds. Extremities: No cyanosis or clubbing. LABORATORY DATA: White count 9.6, hemoglobin 8.8, hematocrit 29.2 platelet count 259. Sodium 142, potassium 3.4, chloride 107, bicarbonate 29, BUN 3, creatinine 0.5, glucose of 91. Blood culture 125. A preliminary gram positive. 12/09/2019 blood cultures Streptococcus pneumonia. 12/09/2019 Streptococcus pneumonia. ASSESSMENT/PLAN: This is a 29-year-old with history of cardiomyopathy with repeat echo showing ejection fraction 65% with mild pulmonary hypertension and diastolic function presents with fever and cough found to have Streptococcus pneumonia on blood culture 12/09/2019 from her emergency room visit where she presented with a typical chest pain. Patient had been placed on vancomycin and ceftriaxone. Repeat echocardiogram shows an ejection fraction (EF) of 65% with no valvular disease or signs of endocarditis. Patient had been on Zyvox due to reaction to vancomycin causing possible Red man syndrome and refused vancomycin currently ceftriaxone and Zyvox with normal white count and afebrile. Patient is doing well aside from persisting cough. Respiratory panel is negative. Group B strep is negative. IMPRESSION: 1. Pneumococcal bacteremia most likely secondary to transient bacteremia from pneumonia. Currently on IV ceftriaxone, Zyvox. Echo shows no endocarditis. Infectious disease (ID) has been consulted. Discharge home if okay with ID and follow recommendations. 2. Breast cancer on chemotherapy: Followup outpatient with Dr. Abbasi. 3. Hypokalemia: Repleted. 4. Obesity complicating her care. 5. History of cardiomyopathy, resolved currently with ejection fraction of 65%. Mild pulmonary hypertension . DISPOSITION: Await infectious disease recommendations.
[2019-12-14] MEDS: ENOXAPARIN 40 MG/0.4 ML SYRINGE (J1650) SC SCH (09:36)
[2019-12-14] MEDS: SPIRONOLACTONE 25 MG TAB PO SCH (09:36)
[2019-12-14] MEDS: VENLAFAXINE **XR** 75MG CAPSULE PO SCH (09:36)
[2019-12-14] MEDS: CANDESARTAN 4MG TABLET PO SCH (09:36)
[2019-12-14] MEDS: SODIUM CHLORIDE 0.9% INJ 10 ML SYR IV SCH ×2 (09:41→14:59)
--- NOTE | 2019-12-14 10:38 | REP ---
CHEST, TWO VIEWS: There is no evidence of acute infiltrate. No pleural effusion is seen. The heart is normal in size. The mediastinal silhouette is unremarkable. The visualized osseous structures are intact. Left central venous catheter is seen with the tip at the junction of the superior vena cava and right atrium. IMPRESSION: No acute pulmonary disease. Electronically Signed by Butch Kingsley MD 12/15/2019 01:29 P
[2019-12-14] MEDS ORDERED: CEFT1INJ5 IV (11:16)
--- NOTE | 2019-12-14 13:15 | DS.PDOC ---
Discharge Summary General Date of Admission Dec 11, 2019 at 10:46 Date of Discharge 12/14/2019 Discharge Summary PROCEDURES PERFORMED DURING STAY: [None]. ADMITTING DIAGNOSES: 1. Pneumococcal bacteremia 2. Post- dilated cardiomyopathy 3. Right breast cancer 4. Morbid obesity DISCHARGE DIAGNOSES: 1. Pneumococcal bacteremia 2. Post- dilated cardiomyopathy 3. Right breast cancer 4. Morbid obesity COMPLICATIONS/CHIEF COMPLAINT: FEVER. HISTORY OF PRESENT ILLNESS: "This is a 29-year-old female with history of dilated cardiomyopathy, ejection fraction 45%, right-sided breast cancer without any metastatic lesions diagnosed 08/30/2019, last chemotherapy was 12/02/2019 status post Neulasta by Dr. Abbasi in [place], presents to the emergency room with acute onset of fever today of 102.2, taken 2 tablets of Tylenol. She has also noted a dry cough for the past 2 days and has been exposed to her sick daughter who also has upper respiratory infection. She otherwise, denies any rhinorrhea, sore throat, changes in vision, headaches, joint pains, muscle aches. Denies any ear discharge, ear pain, nausea or vomiting, diarrhea, abdominal pain, dysuria, urgency or frequency. She denies any back pain, dizziness, lightheadedness or shortness of breath, palpitations. Patient was evaluated in the emergency room (ER) on 12/09/2019 due to atypical chest pain after receiving Neulasta. CT chest was negative for pulmonary embolism, pneumonia, without any active disease. Respiratory panel at that time was negative, but blood culture taken grew Streptococcus pneumoniae. Patient received one dose of Zosyn this morning in the emergency room. She was tachycardic and received some intravenous (IV) fluid without any worsening shortness of breath. She was 94% on room air. Hospitalist was called to admit for fever secondary to pneumococcal bacteremia. Patient does have a right-sided port, which she uses for chemotherapy, which was placed 09/29/2019." HOSPITAL COURSE: Pt was admitted as noted above. Abx treatment instituted with Zyvox and Rocephin IV as pt declined vanc due to allergic reaction. Repeat blood cultures were negative, 2-D ECHO revealed the pt had an EF of 65% with no valvular dz. or signs of endocarditis. Pt symptoms improved with treatment. ID consulted 12/13 and recommended follow-up CXR to r/o pneumonia. Following negative CXR results, pt was d/c with Rocephin IV x 7d per Dr. Fox's recommendations. DISCHARGE MEDICATIONS: Please see below. ALLERGIES: Please see below. PHYSICAL EXAMINATION ON DISCHARGE: VITAL SIGNS: Please see below. General: No acute distress, Alert Eyes: Normal sclera, EOMI, MONSE HENT: Atraumatic, neck supple, moist mucous membranes Cardiovascular: Normal rate, normal rhythm. 2/6 crescendo murmur, S1S2 intact Pulmonary: Clear to auscultation b/l, no wheezing GI: Soft, nontender, nondistended Skin: Warm and dry Neuro: CN grossly intact. No focal deficits. Psych: oriented x 3 LABORATORY DATA: Please see below. IMAGING: Chest, 1 view Impression: 1. AP portable chest, hypoinflated compared to previous study. This exaggerates heart size, crowds markings in the bases but does not reveal infiltrate, effusion or other acute finding. 2. Indwelling port catheter via the left jugular route. Chest, 2 view PA, Lat IMPRESSION: No acute pulmonary disease. ACTIVITY: [As tolerated]. DIET: Regular diet DISCHARGE PLAN: Discharge with Rx for Rocephin 1g x 7d as pr Dr. Fox. Follow- up with Dr. Fox and PCP within 1 week. DISPOSITION: Discharge home DISCHARGE INSTRUCTIONS: 1. Discharge with Rx for Rocephin 1g x 7d as pr Dr. Fox. Follow-up with Dr. Fox and PCP within 1 week. 2. Return to the ER if you experience any problems ITEMS TO FOLLOWUP ON ON OUTPATIENT: 1. see above DISCHARGE CONDITION: [Stable]. TIME SPENT ON DISCHARGE: 35 minutes Vital Signs/I&Os Vital Signs Date Time Temp Pulse Resp B/P (MAP) Pulse Ox O2 Delivery O2 Flow Rate FiO2 12/14/19 06:00 97.7 72 18 105/70 (82) 98 Room Air 12/12/19 08:00 2.0 I&O- Last 24 Hours up to 6 AM 12/14/19 06:00 Intake Total 2160 ml Balance 2160 ml Laboratory Data Labs 24H Laboratory Tests 2 12/14/19 06:46: Immature Granulocyte % (Auto) 4.9H, Neutrophils (%) (Auto) 70.8H, Lymphocytes (%) (Auto) 16.7L, Monocytes (%) (Auto) 6.0H, Eosinophils (%) (Auto) 0.7, Basophils (%) (Auto) 0.9, Neutrophils # (Auto) 4.9, Lymphocytes # (Auto) 1.2L, Monocytes # (Auto) 0.4, Eosinophils # (Auto) 0.1, Basophils # (Auto) 0.1, Nucleated Red Blood Cells % (auto) 1.0H, Anion Gap 5L, Glomerular Filtration Rate > 60.0, Calcium Level 8.7 CBC/BMP Laboratory Tests 12/14/19 06:46 Microbiology Microbiology 12/12/19 Blood Culture - Preliminary, Resulted No Growth after 48 hours. All Specime... 12/12/19 Blood Culture - Preliminary, Resulted No Growth after 48 hours. All Specime... 12/11/19 Blood Culture - Preliminary, Resulted No Growth after 48 hours. All Specime... 12/11/19 Blood Culture - Preliminary, Resulted No Growth after 72 hours. All specime... 12/11/19 Urine Culture - Final, Complete 12/11/19 Group A Streptococcus Screen (JARET) - Final, Complete 12/11/19 Respiratory Virus Panel (PCR) (JARET) - Final, Complete 12/11/19 Blood Culture - Final, Complete Streptococcus Pneumoniae Discharge Medications Scheduled Candesartan Cilexetil (Candesartan Cilexetil) 4 Mg Tablet, 4 MG PO DAILY, (Reported) Ceftriaxone Sodium (Ceftriaxone) 1 Gm Vial, 1 GM IV DAILY Magnesium Oxide (Magnesium Oxide) 400 Mg Tablet, 400 MG PO QHS, (Reported) Metoprolol Succinate (Metoprolol Succinate) 100 Mg Tab.er.24h, 150 MG PO QHS, (Reported) Spironolactone (Spironolactone) 25 Mg Tablet, 25 MG PO DAILY, (Reported) Venlafaxine HCl (Venlafaxine HCl ER) 75 Mg Cap.er.24h, 75 MG PO BID, (Reported) Scheduled PRN Hydrocortisone (Anusol-Hc) 2.5% Crm.pe.yobani, 1 APLCT ME TID PRN for HEMORRHOIDS, (Reported) Ibuprofen (Ibuprofen) 600 Mg Tablet, 600 MG PO Q6H PRN for PAIN, (Reported) Ondansetron HCl (Ondansetron HCl) 4 Mg Tablet, 4 MG PO Q4H PRN for NAUSEA OR VOMITING, (Reported) Allergies Coded Allergies: vancomycin (Verified Allergy, Intermediate, HIVES, 12/11/19) AT [facility] 11/02/19 Gadolinium-Containing Contrast Medi (Verified Adverse Reaction, Mild, vomit, 12/11/19) Attending Note Attending Note I have reviewed the documentation and assessed the patient independently. I have made necessary revisions as needed. I agree with the findings, assessment and plan stated above. - Case discussed with infectious disease - Repeat CXR on 12/14 was negative for any acute findings - Plan for outpatient antibiotics via IV access from port will be continued - Discussed with PFS; will c/w Ceftriaxone 1 g IV x 7 days - Will have outpatient follow up with Infectious disease - Patient has been advised to return to the emergency room if she experiences any problems ALEXANDRE BASS PA-C Dec 14, 2019 13:15 MANJULA HESS MD Dec 14, 2019 16:26
[2019-12-14] MEDS: cefTRIAXone SOD 2 GM in D5W MINI-BAG PLUS 50 ML IV SCH (14:27)
[2019-12-14 14:38] VITALS: BP 136/90
--- NOTE | 2019-12-14 14:53 | CR ---
DATE OF CONSULTATION: I was asked to consult for evaluation of pneumococcal bacteremia. HISTORY OF PRESENT ILLNESS: Briseyda is a 29-year-old pleasant female with a history of right-sided breast cancer who is undergoing chemotherapy under the care of the Dr. Abbasi in [place]. The patient was receiving chemotherapy through an Rsmjoj-U-Pqqs that was placed in September. She was also receiving Neulasta. She has finished her treatments and will be scheduled for bilateral mastectomy and reconstructive surgery. She was diagnosed with pneumonia in mid October and treated with 3 days of IV vancomycin and Zosyn and discharged home on cefdinir. She came back on December 09 complaining of dry cough and chest pain. She had a CT chest angiogram which was negative. The patient had blood cultures, done which were positive for pneumococcal bacteremia. She was called a couple days later for admission. She is complaining of a dry cough after she had an upper respiratory infection that her daughter had. She denies any rhinorrhea, sore throat, headache, neck stiffness, joint pains, muscle aches. She denies any problem with her Mjxjfq-A-Iqxh. No nausea, vomiting or diarrhea. The patient has no back pain, joint pain or shortness of breath. She has been treated with IV ceftriaxone and linezolid. The patient had developed an allergy to vancomycin on the previous admission with hives. PAST MEDICAL HISTORY: Significant for dilated cardiomyopathy in 2014 with an ejection fraction of 45%, follows up with Dr. Das, right breast cancer without metastasis diagnosed 08/30/2019 and will be undergoing bilateral mastectomies in the near future, last chemotherapy was on 12/02/2019, has not received any radiation. The patient did get Neulasta. She has morbid obesity, Body Mass Index (BMI) of 46, hemorrhoids, and anxiety. PAST SURGICAL HISTORY Left port placement 09/29/2019, carpal tunnel release of left hand, tubal ligation. ALLERGIES: GADOLINIUM causes vomiting, VANCOMYCIN caused hives. MEDICATIONS: - candesartan 4 mg daily - ibuprofen 600 mg every 6 hours as needed - magnesium oxide 400 mg nightly - metoprolol 150 mg at night - Zofran 4 mg every 4 hours as needed - spironolactone 25 mg daily SOCIAL HISTORY: She denies any smoking, alcohol or recreational drugs. She lives with her and three children. 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 FAMILY HISTORY: Four sisters, three brothers alive and well. No medical problems. No family history of breast cancer, but her mother had ovarian cancer. REVIEW OF SYSTEMS: The patient is feeling well except for some nasal congestion and cough. No shortness of breath. No nausea, vomiting or diarrhea. No abdominal pain. No dysuria, hematuria. No upper or lower extremity weakness. PHYSICAL EXAMINATION: Heart: Normal S1, S2. No murmurs, rubs or gallops. Lungs; Clear wheezes or rhonchi. Abdomen: Obese. Soft, nontender. No hepatosplenomegaly. Back: No costovertebral angle or lumbosacral tenderness. Extremities: No clubbing, cyanosis or edema. No calf tenderness. Chest wall left Lcsnig-O-Vgiw that is nontender to touch. Neurologic: Upper and lower extremity strength normal. Temperature is 97.8, pulse 89, respirations 17, blood pressure 117/76, oxygen saturation is 96% on room air. IMAGING STUDIES: Chest x-ray Done on 12/11/2019, portable view, lungs are less inflated than previous study with crowding of markings in the bases but no effusion, consolidation or parenchymal mass. There is a left jugular port catheter. CT angiogram was done on December 09, 2019 that showed no evidence of PE. No hilar or mediastinal adenopathy. No pneumonia. LABORATORY DATA: 12/09/2019, Streptococcus pneumoniae on blood culture. 12/11/2019 one set was ordered at each time, pansensitive to penicillin with penicillin JARET less than 0.25. 12/11/2019 respiratory panel was negative. Group A streptococcus negative. Urine culture was negative. Blood cultures repeated on 12/11 two sets at noon and at 2025 two sets were negative. IMPRESSION: This is a 29-year-old female with breast cancer undergoing chemotherapy, status post recent treatment on 12/02/2019, was admitted with a cough, fever and chest pain with chest CT and chest x-ray not consistent with pneumonia, although the patient clinically had cough and chest pain. She could have a bronchitis or sinusitis and due to her immunosuppression from chemotherapy ended up with bacteremia or less likely she could have a pneumococcal line infection. Clinically, the patient is doing much better. She is afebrile and other than a small residual cough, doing well. MEDICATIONS: - ceftriaxone 2 grams IV every 24 hours - linezolid 600 mg IV every 12 hours - doxycycline 100 mg IV times one dose PLAN: Discontinue IV linezolid, there is no need for Staphylococcus aureus coverage. Continue IV ceftriaxone. Repeat chest x-ray PA and lateral tomorrow and if that chest x-ray does not show any evidence of pneumonia then I would suggest treating her with IV ceftriaxone for presumptive pneumococcal bacteremia from a line infection and ideally would be to treat through the line and therefore I would discharge her home to finish a 2-week course of IV Rocephin at home. If the chest x-ray shows evidence of pneumonia, then I would switch her to amoxicillin for treatment of pneumococcal pneumonia for 10 day treatment. MTDD
== END 2019-12-14 15:05 | disposition home or self-care (01) | DRG 724 ==
LOC: M ED 07:49 → M ED INP 10:46 → ENRESERVTM 11:50 → ENRESERVDT 11:50 → M MS5PR 12:10
PROVIDERS: ADMIT General Practice; ATTEND Internal Medicine
DX: R78.81 Bacteremia (principal); I42.8 Other cardiomyopathies; Z68.42 Body mass index [BMI] 45.0-49.9, adult; C50.911 Malignant neoplasm of unspecified site of right female breast; E66.01 Morbid (severe) obesity due to excess calories; B95.3 Streptococcus pneumoniae as the cause of diseases classified elsewhere; Z92.21 Personal history of antineoplastic chemotherapy; K64.9 Unspecified hemorrhoids; Z95.828 Presence of other vascular implants and grafts; Z91.041 Radiographic dye allergy status; Z88.1 Allergy status to other antibiotic agents; Z79.899 Other long term (current) drug therapy; E87.6 Hypokalemia; Z87.59 Personal history of other complications of pregnancy, childbirth and the puerperium

== ENCOUNTER 2019-12-15 09:14 | Outpatient (CLI) | payer BC ==
[~2019-12-15] VITALS: Ht 162.6 cm; Wt 125.1 kg
[~2019-12-15 09:14] MED LIST changes: +CEFT1INJ5 IV
[2019-12-15 09:30] VITALS: BP 112/67
[2019-12-15] MEDS ORDERED: SODIUM CHLORIDE 0.9% INJ 10 ML SYR IV PRN (09:30)
[2019-12-15] MEDS ORDERED: cefTRIAXone SOD 1 GM VIAL (J0696) IV ONE (09:30)
[2019-12-15 10:35] VITALS: BP 117/58
[2019-12-16] MEDS ORDERED: SODIUM CHLORIDE 0.9% INJ 10 ML SYR IV SCH (09:00)
== END 2019-12-15 10:35 | disposition home or self-care (01) ==
LOC: M INFU 09:14
PROVIDERS: ATTEND Internal Medicine
DX: J15.4 Pneumonia due to other streptococci (principal); Z91.041 Radiographic dye allergy status; Z88.1 Allergy status to other antibiotic agents
CPT/HCPCS: 96374; J0696; J1642

== ENCOUNTER 2019-12-16 08:51 | Outpatient (CLI) | payer BC ==
[~2019-12-16] VITALS: Ht 162.6 cm; Wt 125.0 kg
[2019-12-16 09:09] VITALS: BP 130/74
[2019-12-16] MEDS ORDERED: SODIUM CHLORIDE 0.9% INJ 10 ML SYR IV PRN (09:15)
[2019-12-16] MEDS ORDERED: cefTRIAXone SOD 1 GM in D5W MINI-BAG PLUS 50 ML IV ONE (09:30)
[2019-12-16 09:59] VITALS: BP 130/71
[2019-12-17] MEDS ORDERED: SODIUM CHLORIDE 0.9% INJ 10 ML SYR IV SCH (09:00)
== END 2019-12-16 09:55 | disposition home or self-care (01) ==
LOC: M INFU 08:51
PROVIDERS: ATTEND Internal Medicine
DX: J15.4 Pneumonia due to other streptococci (principal); Z88.1 Allergy status to other antibiotic agents; Z91.041 Radiographic dye allergy status
CPT/HCPCS: 96365; J0696; J1642

== ENCOUNTER 2019-12-17 09:54 | Outpatient (CLI) | payer BC ==
[~2019-12-17] VITALS: Ht 162.6 cm; Wt 125.1 kg
[2019-12-17 10:00] VITALS: BP 113/68
[2019-12-17] MEDS ORDERED: cefTRIAXone SOD 1 GM VIAL (J0696) IV ONE (10:15)
[2019-12-17] MEDS ORDERED: SODIUM CHLORIDE 0.9% INJ 10 ML SYR IV PRN (10:15)
[2019-12-17 10:41] VITALS: BP 117/67
[2019-12-18] MEDS ORDERED: SODIUM CHLORIDE 0.9% INJ 10 ML SYR IV SCH (09:00)
== END 2019-12-17 10:41 | disposition home or self-care (01) ==
LOC: M INFU 09:54
PROVIDERS: ATTEND Internal Medicine
DX: J15.4 Pneumonia due to other streptococci (principal); Z88.1 Allergy status to other antibiotic agents; Z91.041 Radiographic dye allergy status
CPT/HCPCS: 96374; J0696; J1642

== ENCOUNTER 2019-12-18 10:19 | Outpatient (CLI) | payer BC ==
[~2019-12-18] VITALS: Ht 162.6 cm; Wt 125.1 kg
[2019-12-18] MEDS ORDERED: SODIUM CHLORIDE 0.9% INJ 10 ML SYR IV PRN (10:45)
[2019-12-18] MEDS ORDERED: cefTRIAXone SOD 1 GM in D5W MINI-BAG PLUS 50 ML IV ONE (11:00)
[2019-12-18 11:15] VITALS: BP 102/68
[2019-12-19] MEDS ORDERED: SODIUM CHLORIDE 0.9% INJ 10 ML SYR IV SCH (09:00)
== END 2019-12-18 13:10 | disposition home or self-care (01) ==
LOC: M OPCLIPED 10:19 → M MS5PR 10:25 → M OPCLIPED 13:10
PROVIDERS: ATTEND Internal Medicine
DX: J13 Pneumonia due to Streptococcus pneumoniae (principal); Z88.1 Allergy status to other antibiotic agents; Z91.041 Radiographic dye allergy status
CPT/HCPCS: 96374; J0696; J1642

== ENCOUNTER 2019-12-19 10:11 | Outpatient (CLI) | payer BC ==
[2019-12-19] MEDS ORDERED: SODIUM CHLORIDE 0.9% INJ 10 ML SYR IV PRN (10:45)
[2019-12-19] MEDS ORDERED: cefTRIAXone SOD 1 GM in D5W MINI-BAG PLUS 50 ML IV ONE (11:00)
[2019-12-20] MEDS ORDERED: SODIUM CHLORIDE 0.9% INJ 10 ML SYR IV SCH (09:00)
== END 2019-12-19 11:20 | disposition home or self-care (01) ==
LOC: M OPCLIPED 10:11 → M MS5PR 10:14 → M OPCLIPED 11:20
PROVIDERS: ATTEND Internal Medicine
DX: J13 Pneumonia due to Streptococcus pneumoniae (principal); Z88.1 Allergy status to other antibiotic agents; Z91.041 Radiographic dye allergy status
CPT/HCPCS: 96374; J0696; J1642

== ENCOUNTER 2019-12-20 09:13 | Outpatient (CLI) | payer BC ==
[~2019-12-20] VITALS: Ht 162.6 cm; Wt 125.0 kg
[2019-12-20 09:15] VITALS: BP 111/68
[2019-12-20] MEDS ORDERED: cefTRIAXone SOD 1 GM in D5W MINI-BAG PLUS 50 ML IV ONE (09:15)
[2019-12-20] MEDS ORDERED: SODIUM CHLORIDE 0.9% INJ 10 ML SYR IV PRN (09:15)
[2019-12-20 10:20] VITALS: BP 130/66
[2019-12-21] MEDS ORDERED: SODIUM CHLORIDE 0.9% INJ 10 ML SYR IV SCH (09:00)
== END 2019-12-20 10:20 | disposition home or self-care (01) ==
LOC: M INFU 09:13
PROVIDERS: ATTEND Internal Medicine
DX: J15.4 Pneumonia due to other streptococci (principal); Z88.8 Allergy status to other drugs, medicaments and biological substances; Z91.041 Radiographic dye allergy status
CPT/HCPCS: 96365; J0696; J1642

== ENCOUNTER 2019-12-21 10:45 | Outpatient (CLI) | payer BC ==
[~2019-12-21] VITALS: Ht 162.6 cm; Wt 125.0 kg
[~2019-12-21 10:45] MED LIST changes: +SODIUM CHLORIDE 0.9% INJ 10 ML SYR IV PRN; +cefTRIAXone SOD 1 GM in D5W MINI-BAG PLUS 50 ML IV ONE
[2019-12-21 11:11] VITALS: BP 119/67
[2019-12-21 11:45] VITALS: BP 123/79
[2019-12-22] MEDS ORDERED: SODIUM CHLORIDE 0.9% INJ 10 ML SYR IV SCH (09:00)
== END 2019-12-21 11:45 | disposition home or self-care (01) ==
LOC: M INFU 10:45
PROVIDERS: ATTEND Internal Medicine
DX: J15.4 Pneumonia due to other streptococci (principal); Z88.8 Allergy status to other drugs, medicaments and biological substances; Z91.041 Radiographic dye allergy status
CPT/HCPCS: 96365; J0696; J1642

== ENCOUNTER 2020-03-12 21:22 | Emergency (ER) | payer BC ==
[~2020-03-12 21:22] MED LIST changes: -SODIUM CHLORIDE 0.9% INJ 10 ML SYR IV PRN; -cefTRIAXone SOD 1 GM in D5W MINI-BAG PLUS 50 ML IV ONE
[2020-03-12] MEDS ORDERED: XELO150T PO (21:41)
[2020-03-12] MEDS ORDERED: CAPE1TAB2 PO (21:41)
[2020-03-12] MEDS ORDERED: METO1TAB33 PO (21:41)
[2020-03-12 22:25] LABS: HEMATOCRIT 31.5 % (36.0-47.0); HEMOGLOBIN 9.6 g/dl (12.0-15.5); MEAN CORPUSCULAR HEMOGLOBIN 25.5 pg (27.0-33.0); MEAN CORPUSCULAR HGB CONC 30.5 g/dl (32.0-36.5); MEAN CORPUSCULAR VOLUME 83.6 fl (80.0-96.0); PLATELET COUNT, AUTOMATED 384 10^3/uL (150-450); RED BLOOD COUNT 3.77 10^6/uL (4.00-5.40); WHITE BLOOD COUNT 5.9 10^3/uL (4.0-10.0)
[2020-03-12] MEDS ORDERED: ACETAMINOPHEN 325 MG TAB PO ONE (22:30)
[2020-03-12] MEDS ORDERED: ISOVUE-370 76% 100ML VIAL As Ordered ONE (22:32)
[2020-03-12 22:44] LABS: ANISOCYTOSIS 1+; ATYPICAL LYMPH 2 % (0-5); BASOPHILS 1 % (0-1); EOSINOPHILS 6 % (0-3); HYPOCHROMASIA 1+; LYMPHOCYTES 40 % (16-44); MONOCYTES 2 % (0-5); NEUTROPHILS 49 % (28-66); PLATELET ESTIMATE NORMAL (NORMAL)
[2020-03-12 23:01] LABS: ALT/SGPT 20 U/L (12-78); BILIRUBIN,DIRECT < 0.1 MG/DL (0.0-0.2); BILIRUBIN,TOTAL 0.2 MG/DL (0.2-1.0); CK-MB VALUE MASS < 1.0 NG/ML (<3.6); CPK CREATINE PHOSPHOKINASE 45 U/L (26-192); LIPASE 85 U/L (73-393); MB/CK RELATIVE INDEX 2.22 (< OR =4); NT-PRO BNP 116 PG/ML (<125); TOTAL PROTEIN 7.3 GM/DL (6.4-8.2); TROPONIN I < 0.02 NG/ML (< 0.10)
--- NOTE | 2020-03-12 23:07 | REPVR ---
PROCEDURE INFORMATION: Exam: CT Angiography Chest With Contrast Exam date and time: 03/12/2020 10:40 PM Age: 29 years old Clinical indication: Chest pain, R/O PE TECHNIQUE: Imaging protocol: Computed tomographic angiography of the chest with intravenous contrast. 3D rendering: MIP and/or 3D reconstructed images were created by the technologist. Radiation optimization: All CT scans at this facility use at least one of these dose optimization techniques: automated exposure control; mA and/or kV adjustment per patient size (includes targeted exams where dose is matched to clinical indication); or iterative reconstruction. Contrast material: ISOVUE 370; Contrast volume: 75 ml; Contrast route: IV; COMPARISON: CT ANGIO CHEST 12/09/2019 3:25 PM FINDINGS: Tubes, catheters and devices: There is a left internal jugular Port-A-Cath terminating at the junction of the superior vena cava and right atrium. Pulmonary arteries: No pulmonary embolism. Great vessels off aortic arch: The brachiocephalic artery, imaged proximal portion of the left common carotid artery, and left subclavian artery are intact. No stenosis or occlusion of these vessels is noted. Aorta: There is no thoracic aortic aneurysm, pseudoaneurysm, penetrating atherosclerotic ulcer, intramural hematoma, or dissection. Superior vena cava: Patent. Tracheobronchial tree: There is a 5 mm tracheal diverticulum arising from the posterolateral aspect of the trachea at the level of the thoracic inlet, which is unchanged compared to the prior CTA chest on 12/09/2019. The tracheobronchial tree is patent. Lungs: The lungs are clear. There is no lung consolidation, pulmonary infarct, or mass. No emphysematous changes or interstitial lung disease is noted. Pleural space: Normal. No pneumothorax or pleural effusion. Heart: No cardiomegaly. No pericardial effusion. The ratio of the diameter of the right ventricle to the diameter of the left ventricle measures less than 1, which is within normal limits and there is no evidence for a right ventricular strain. Mediastinum: There is a small sliding hiatal hernia. There is fluid in the esophagus, which can be seen with gastroesophageal reflux. No mediastinal mass, fluid collection, or pneumomediastinum. Lymph nodes: No enlarged lymph nodes. Liver: The imaged portion of the liver is unremarkable. The inferior most aspect of the right hepatic lobe was not imaged. Gallbladder and bile ducts: No calcified gallstones are noted. No gallbladder wall thickening, pericholecystic fluid, or pericholecystic inflammatory changes are identified. No dilation of the intrahepatic or extrahepatic bile ducts is noted. Pancreas: Normal. No dilation of the main pancreatic duct is noted. There is no inflammatory fat stranding around the pancreas to suggest acute pancreatitis. Spleen: The spleen is heterogeneous in appearance, which is likely secondary to the arterial timing of the contrast bolus. No splenomegaly. Adrenals: Normal. No adrenal mass is noted. Bones/joints: No fracture or dislocation is noted. There is no suspicious osteolytic or osteoblastic lesion. Soft tissues: Bilateral breast tissue leather stripping machine operator implants are in place, and there is an air-fluid level within the right breast tissue leather stripping machine operator implant and a deformity of the anterior contour of the implant. No drainable soft tissue fluid collection or soft tissue gas is noted. There are surgical clips, scar tissue, and edema changes in both breasts. Surgical clips are also present in the right axillary region. The breast tissue leather stripping machine operator implants are new compared to the prior CTA chest on 12/09/2019. IMPRESSION: 1. No pulmonary embolism. 2. Clear lungs. 3. Bilateral breast tissue leather stripping machine operator implants in place, and there is an air-fluid level within the right breast tissue leather stripping machine operator implant and a deformity of the anterior contour of the right implant. Electronically signed by: Rohan Bernard On 03/12/2020 23:06:23 PM
[2020-03-13 00:47] LABS: CK-MB VALUE MASS < 1.0 NG/ML (<3.6); CPK CREATINE PHOSPHOKINASE 45 U/L (26-192); MB/CK RELATIVE INDEX 2.22 (< OR =4); TROPONIN I < 0.02 NG/ML (< 0.10)
[2020-03-13 01:00] VITALS: BP 101/58
--- NOTE | 2020-03-13 02:51 | REP ---
Clinical: Chest pain . Comparison: 12/14/2019 . Findings: The mediastinum and cardiac silhouette are stable and within normal limits for portable technique. Frikvo-N-Hvxh identified with tip in the right atrium. The lung leone are clear without acute consolidation, effusion, or pneumothorax. Skeletal structures are intact. Bilateral mammoplasty noted. Impression: No acute cardiopulmonary process appreciated. Electronically Signed by Mike Dinero MD 03/13/2020 02:43 A
--- NOTE | 2020-03-13 05:42 | ECGEPIP ---
[facility] - ED Test Date: 2020-03-12 Pat Name: SHARRI YOUNG Department: Room: - Gender: Female Fitness And Wellness Director: alice : 1990 Requested By: KASANDRA LOPEZ PA-C Order Number: [id number] Reading MD: Serjio Velazquez Measurements Intervals [place] Rate: 68 P: 22 NC: 171 QRS: 12 QRSD: 99 T: 0 QT: 401 QTc: 427 Interpretive Statements SINUS RHYTHM WITH SINUS ARRHYTHMIA BASELINE ARTIFACT AFFECTS INTERPRETATION RATE CHANGE COMPARED TO 12/11/19 Electronically Signed on 03-13-2020 5:42:33 EDT by Serjio Velazquez
--- NOTE | 2020-03-13 07:23 | ECGEPIP ---
[facility] - ED Test Date: 2020-03-13 Pat Name: SHARRI YOUNG Department: Room: - Gender: Female Cephalometric Technician: alice : 1990 Requested By: CLAUDIO TATUM Order Number: [id number] Reading MD: Serjio Velazquez Measurements Intervals [place] Rate: 75 P: 23 NE: 171 QRS: 10 QRSD: 97 T: 5 QT: 397 QTc: 446 Interpretive Statements SINUS RHYTHM MINIMAL VOLTAGE CRITERIA FOR LVH, CONSIDER NORMAL VARIANT NONSPECIFIC T WAVE ABNORMALITIES SIMILAR TO 03/12/20 Electronically Signed on 03-13-2020 7:22:53 EDT by Serjio Velazquez
== END 2020-03-13 01:05 | disposition home or self-care (01) ==
LOC: M ED 21:22
DX: R07.89 Other chest pain (principal); R06.02 Shortness of breath; C50.911 Malignant neoplasm of unspecified site of right female breast; Z79.899 Other long term (current) drug therapy
CPT/HCPCS: 36415; 71045; 71275; 80047; 80076; 82550; 82553; 83690; 83880; 84443; 84484; 85025; 93005; 93041; 94760; 99284; Q9967

== ENCOUNTER → 2020-04-11 | Outpatient (REF) | payer BC ==
[~2020-04-11] MED LIST changes: +CAPE1TAB2 PO; +XELO150T PO
[2020-04-11 15:51] LABS: CHLAMYDIA DNA AMPLIFICATION NEGATIVE (NEGATIVE); GC DNA AMPLIFICATION NEGATIVE (NEGATIVE)
== END ==
LOC: M SFHCWAGY 12:50
PROVIDERS: ATTEND Advanced Practice Midwife
DX: Z01.419 Encounter for gynecological examination (general) (routine) without abnormal findings (principal); R10.2 Pelvic and perineal pain; Z12.4 Encounter for screening for malignant neoplasm of cervix
CPT/HCPCS: 87086; 87624; 87661; G0123

== ENCOUNTER → 2020-04-21 | Outpatient (REF) | payer BC ==
[2020-04-21 13:10] LABS: HEMATOCRIT 31.7 % (36.0-47.0); MEAN CORPUSCULAR HEMOGLOBIN 27.9 pg (27.0-33.0); MEAN CORPUSCULAR HGB CONC 31.5 g/dl (32.0-36.5); MEAN CORPUSCULAR VOLUME 88.3 fl (80.0-96.0); PLATELET COUNT, AUTOMATED 356 10^3/uL (150-450); RED BLOOD COUNT 3.59 10^6/uL (4.00-5.40); WHITE BLOOD COUNT 7.4 10^3/uL (4.0-10.0)
[2020-04-21 13:33] LABS: ALT/SGPT 21 U/L (12-78); BILIRUBIN,TOTAL 0.4 MG/DL (0.2-1.0); BLOOD UREA NITROGEN 11 MG/DL (7-18); CALCIUM LEVEL 8.5 MG/DL (8.5-10.1); CARBON DIOXIDE LEVEL 29 MEQ/L (21-32); CHLORIDE LEVEL 107 MEQ/L (98-107); CREATININE FOR GFR 0.62 MG/DL (0.55-1.30); GLOMERULAR FILTRATION RATE > 60.0 (>60); GLUCOSE, FASTING 96 MG/DL (70-100); POTASSIUM SERUM 3.9 MEQ/L (3.5-5.1); SODIUM LEVEL 141 MEQ/L (136-145)
== END ==
LOC: M LABDRWAD 12:34
PROVIDERS: ATTEND Nurse Practitioner
DX: C50.411 Malignant neoplasm of upper-outer quadrant of right female breast (principal)

== ENCOUNTER → 2020-04-26 | Outpatient (CLI) | payer BC ==
--- NOTE | 2020-04-27 14:41 | REP ---
Clinical: Pelvic pain. Technique: Transabdominal pelvic ultrasound followed by transvaginal examination for better evaluation of the endometrium and adnexa. Findings: Normal anteverted uterus measures 6.9 x 3.4 x 4.2 cm. Endometrial complex measures 6 mm thickness. No discrete uterine or endometrial abnormality identified. Left ovary is not visualized on either transabdominal or transvaginal imaging likely due to position and surrounding bowel gas. Right ovary is identified on transabdominal imaging and appears normal measuring 1.6 x 1.4 x 1.5 cm. No pelvic fluid or adnexal mass lesion. Impression: Normal uterus and right ovary. Left ovary not visualized.
== END ==
LOC: M WHC 10:49
PROVIDERS: ATTEND Advanced Practice Midwife
DX: R10.2 Pelvic and perineal pain (principal)

== ENCOUNTER → 2020-05-15 | Outpatient (REF) | payer BC ==
[2020-05-15 16:45] LABS: BASO % 0.4 % (0.0-1.0); EOS # 0.2 10^3/uL (0.0-0.5); EOS % 2.3 % (0.0-3.0); HEMATOCRIT 31.4 % (36.0-47.0); HEMOGLOBIN 9.9 g/dl (12.0-15.5); LYMPH # 1.8 10^3/uL (1.5-5.0); LYMPH % 22.6 % (24.0-44.0); MEAN CORPUSCULAR HGB CONC 31.5 g/dl (32.0-36.5); MEAN CORPUSCULAR VOLUME 92.1 fl (80.0-96.0); MONO # 0.3 10^3/uL (0.0-0.8); MONO % 4.3 % (0.0-5.0); NEUTROPHILS # 5.5 10^3/uL (1.5-8.5); PLATELET COUNT, AUTOMATED 325 10^3/uL (150-450); RED BLOOD COUNT 3.41 10^6/uL (4.00-5.40); WHITE BLOOD COUNT 7.9 10^3/uL (4.0-10.0)
[2020-05-15 17:07] LABS: ALBUMIN 2.9 GM/DL (3.2-5.2); ALT/SGPT 26 U/L (12-78); BILIRUBIN,TOTAL 0.4 MG/DL (0.2-1.0); BLOOD UREA NITROGEN 9 MG/DL (7-18); CALCIUM LEVEL 8.8 MG/DL (8.5-10.1); CARBON DIOXIDE LEVEL 29 MEQ/L (21-32); CHLORIDE LEVEL 105 MEQ/L (98-107); CREATININE FOR GFR 0.67 MG/DL (0.55-1.30); GLOMERULAR FILTRATION RATE > 60.0 (>60); GLUCOSE, FASTING 110 MG/DL (70-100); POTASSIUM SERUM 4.1 MEQ/L (3.5-5.1); SODIUM LEVEL 140 MEQ/L (136-145); TOTAL PROTEIN 7.2 GM/DL (6.4-8.2)
== END ==
LOC: M LABDRWAD 16:14
PROVIDERS: ATTEND Internal Medicine Hematology & Oncology
DX: C50.411 Malignant neoplasm of upper-outer quadrant of right female breast (principal)

== ENCOUNTER → 2020-06-06 | Outpatient (REF) | payer BC ==
[~2020-06-06] MED LIST changes: +MAGICMW PO; +PRED20TA PO; +PROAAER10 INH; +[UNRECOGNIZED DRUG - OTHER] EX
[2020-06-06 14:39] LABS: ALBUMIN 2.9 GM/DL (3.2-5.2); ALT/SGPT 23 U/L (12-78); BILIRUBIN,TOTAL 0.4 MG/DL (0.2-1.0); BLOOD UREA NITROGEN 7 MG/DL (7-18); CALCIUM LEVEL 8.9 MG/DL (8.5-10.1); CARBON DIOXIDE LEVEL 32 MEQ/L (21-32); CHLORIDE LEVEL 107 MEQ/L (98-107); CREATININE FOR GFR 0.72 MG/DL (0.55-1.30); GLOMERULAR FILTRATION RATE > 60.0 (>60); GLUCOSE, FASTING 120 MG/DL (70-100); POTASSIUM SERUM 3.8 MEQ/L (3.5-5.1); SODIUM LEVEL 142 MEQ/L (136-145); TOTAL PROTEIN 6.7 GM/DL (6.4-8.2)
[2020-06-06 14:55] LABS: BASO % 0.5 % (0.0-1.0); EOS # 0.2 10^3/uL (0.0-0.5); EOS % 3.8 % (0.0-3.0); HEMATOCRIT 31.9 % (36.0-47.0); HEMOGLOBIN 10.1 g/dl (12.0-15.5); LYMPH # 1.3 10^3/uL (1.5-5.0); LYMPH % 23.1 % (24.0-44.0); MEAN CORPUSCULAR HEMOGLOBIN 30.4 pg (27.0-33.0); MEAN CORPUSCULAR HGB CONC 31.7 g/dl (32.0-36.5); MEAN CORPUSCULAR VOLUME 96.1 fl (80.0-96.0); MONO # 0.2 10^3/uL (0.0-0.8); MONO % 3.3 % (0.0-5.0); NEUTROPHILS % 69.1 % (36.0-66.0); PLATELET COUNT, AUTOMATED 290 10^3/uL (150-450); RED BLOOD COUNT 3.32 10^6/uL (4.00-5.40); WHITE BLOOD COUNT 5.8 10^3/uL (4.0-10.0)
== END ==
LOC: M LABDRWAD 13:18
PROVIDERS: ATTEND Internal Medicine Hematology & Oncology
DX: C50.411 Malignant neoplasm of upper-outer quadrant of right female breast (principal)

== ENCOUNTER 2020-06-14 13:11 | Emergency (ER) | payer BC ==
[~2020-06-14 13:11] MED LIST changes: -MAGICMW PO; -PRED20TA PO; -PROAAER10 INH; -[UNRECOGNIZED DRUG - OTHER] EX
[2020-07-23 09:19] LABS: BASO % 0.6 % (0.0-1.0); EOS # 0.3 10^3/uL (0.0-0.5); EOS % 4.8 % (0.0-3.0); HEMATOCRIT 33.2 % (36.0-47.0); HEMOGLOBIN 10.8 g/dl (12.0-15.5); LYMPH # 1.5 10^3/uL (1.5-5.0); LYMPH % 21.3 % (24.0-44.0); MEAN CORPUSCULAR HEMOGLOBIN 31.4 pg (27.0-33.0); MEAN CORPUSCULAR HGB CONC 32.5 g/dl (32.0-36.5); MEAN CORPUSCULAR VOLUME 96.5 fl (80.0-96.0); MONO # 0.4 10^3/uL (0.0-0.8); MONO % 6.2 % (0.0-5.0); NEUTROPHILS # 4.6 10^3/uL (1.5-8.5); NEUTROPHILS % 66.8 % (36.0-66.0); PLATELET COUNT, AUTOMATED 324 10^3/uL (150-450); RED BLOOD COUNT 3.44 10^6/uL (4.00-5.40); WHITE BLOOD COUNT 6.9 10^3/uL (4.0-10.0)
[2020-08-23] MEDS ORDERED: MAGICMW PO (16:17)
[2020-09-05] MEDS ORDERED: MAGICMW PO (16:10)
== END 2020-06-14 14:35 | disposition home or self-care (01) ==
LOC: M ED 13:11
DX: R05 Cough (principal); Z85.3 Personal history of malignant neoplasm of breast; Z90.10 Acquired absence of unspecified breast and nipple; Z79.899 Other long term (current) drug therapy; Z88.1 Allergy status to other antibiotic agents; Z91.041 Radiographic dye allergy status

== ENCOUNTER → 2020-06-23 | Outpatient (CLI) | payer BC ==
[~2020-06-23] MED LIST changes: +MAGICMW PO; +PRED20TA PO; +PROAAER10 INH; +[UNRECOGNIZED DRUG - OTHER] EX
== END ==
LOC: M ONCR 13:28
PROVIDERS: ATTEND General Practice
DX: C50.919 Malignant neoplasm of unspecified site of unspecified female breast (principal)

== ENCOUNTER → 2020-08-16 | Outpatient (RCR) | payer BC | LOC: M ONCR 07-20 10:27 | PROVIDERS: ATTEND General Practice | DX: C50.411 Malignant neoplasm of upper-outer quadrant of right female breast (principal) ==

== ENCOUNTER 2020-08-19 22:37 | Emergency (ER) | payer BC ==
[~2020-08-19] VITALS: Ht 162.6 cm; Wt 125.3 kg
[~2020-08-19 22:37] MED LIST changes: -MAGICMW PO; -PRED20TA PO; -PROAAER10 INH; -[UNRECOGNIZED DRUG - OTHER] EX
[2020-08-20] MEDS ORDERED: BENZONATATE 100 MG CAP PO ONE (00:15)
[2020-08-20] MEDS ORDERED: methylPREDNISolone 125MG 2ML VIAL IV ONE (00:15)
[2020-08-20 01:18] LABS: BASO % 0.4 % (0.0-1.0); EOS # 0.1 10^3/uL (0.0-0.5); EOS % 2.4 % (0.0-3.0); HEMATOCRIT 33.1 % (36.0-47.0); HEMOGLOBIN 10.3 g/dl (12.0-15.5); LYMPH # 0.8 10^3/uL (1.5-5.0); MEAN CORPUSCULAR HEMOGLOBIN 27.2 pg (27.0-33.0); MEAN CORPUSCULAR HGB CONC 31.1 g/dl (32.0-36.5); MEAN CORPUSCULAR VOLUME 87.3 fl (80.0-96.0); MONO # 0.4 10^3/uL (0.0-0.8); MONO % 7.7 % (0.0-5.0); NEUTROPHILS # 3.6 10^3/uL (1.5-8.5); NEUTROPHILS % 72.1 % (36.0-66.0); PLATELET COUNT, AUTOMATED 331 10^3/uL (150-450); RED BLOOD COUNT 3.79 10^6/uL (4.00-5.40)
[2020-08-20 01:44] LABS: ALBUMIN 3.2 GM/DL (3.2-5.2); ALT/SGPT 18 U/L (12-78); BILIRUBIN,DIRECT < 0.1 MG/DL (0.0-0.2); BILIRUBIN,TOTAL 0.1 MG/DL (0.2-1.0); BLOOD UREA NITROGEN 11 MG/DL (7-18); CALCIUM LEVEL 8.8 MG/DL (8.5-10.1); CARBON DIOXIDE LEVEL 27 MEQ/L (21-32); CHLORIDE LEVEL 106 MEQ/L (98-107); CK-MB VALUE MASS < 1.0 NG/ML (<3.6); CPK CREATINE PHOSPHOKINASE 49 U/L (26-192); CREATININE FOR GFR 0.69 MG/DL (0.55-1.30); GLOMERULAR FILTRATION RATE > 60.0 (>60); GLUCOSE, FASTING 87 MG/DL (70-100); MB/CK RELATIVE INDEX 2.04 (< OR =4); NT-PRO BNP 55 PG/ML (<125); POTASSIUM SERUM 4.2 MEQ/L (3.5-5.1); SODIUM LEVEL 139 MEQ/L (136-145); TOTAL PROTEIN 7.2 GM/DL (6.4-8.2); TROPONIN I 0.06 NG/ML (< 0.10)
[2020-08-20] MEDS ORDERED: ISOVUE-370 76% 100ML VIAL As Ordered ONE (02:24)
--- NOTE | 2020-08-20 03:19 | REPVR ---
PROCEDURE INFORMATION: Exam: CT Angiography Chest With Contrast Exam date and time: 08/20/2020 2:42 AM Age: 30 years old Clinical indication: Cough and shortness of breath; Additional info: SOB, cough TECHNIQUE: Imaging protocol: Computed tomographic angiography of the chest with intravenous contrast. 3D rendering (Not supervised by radiologist): MIP and/or 3D reconstructed images were created by the technologist. Radiation optimization: All CT scans at this facility use at least one of these dose optimization techniques: automated exposure control; mA and/or kV adjustment per patient size (includes targeted exams where dose is matched to clinical indication); or iterative reconstruction. Contrast material: ISOVUE 370; Contrast volume: 75 ml; Contrast route: INTRAVENOUS (IV); COMPARISON: CT ANGIO CHEST 03/12/2020 10:33 PM FINDINGS: Tubes, catheters and devices: Left chest MediPort. Pulmonary arteries: Normal. No pulmonary emboli. Aorta: Unremarkable. No aortic aneurysm. No aortic dissection. Lungs: Mild linear atelectasis or scarring at the left base. Pleural space: Unremarkable. No pneumothorax. No pleural effusion. Heart: Unremarkable. No cardiomegaly. No pericardial effusion. Lymph nodes: Unremarkable. No enlarged lymph nodes. Bones/joints: Mild multilevel degenerative disc disease of the thoracic spine. Soft tissues: Status post bilateral mastectomy and right axillary lymph node resection. Bilateral breast implants. Geographic steatosis. IMPRESSION: No acute pulmonary embolic disease. Electronically signed by: Darian Coronel On 08/20/2020 03:19:02 AM
[2020-08-20] MEDS ORDERED: PRED20TA PO (03:55)
[2020-08-20] MEDS ORDERED: TESS100C PO (03:55)
[2020-08-20] MEDS ORDERED: PROAAER10 INH (03:55)
[2020-08-20 04:01] VITALS: BP 122/73
--- NOTE | 2020-08-20 05:55 | ECGEPIP ---
[facility] - ED Test Date: 2020-08-20 Pat Name: SHARRI YOUNG Department: Room: - Gender: Female Home Sales Service Professional: gonzalo : 1990 Requested By: ROWAN Armendariz Order Number: [id number] Reading MD: Serjio Velazquez Measurements Intervals [place] Rate: 75 P: 4 HI: 150 QRS: 2 QRSD: 99 T: -13 QT: 380 QTc: 427 Interpretive Statements SINUS RHYTHM VOLTAGE CRITERIA FOR LVH NONSPECIFIC T-WAVE ABNORMALITY SIMILAR TO 03/13/20 Electronically Signed on 08-20-2020 5:55:39 EDT by Serjio Velazquez
[2020-08-23] MEDS ORDERED: MAGICMW PO (16:17)
[2020-09-05] MEDS ORDERED: MAGICMW PO (16:10)
== END 2020-08-20 04:23 | disposition home or self-care (01) ==
LOC: M ED 22:37
DX: B34.8 Other viral infections of unspecified site (principal); R06.00 Dyspnea, unspecified; C50.919 Malignant neoplasm of unspecified site of unspecified female breast; Z92.3 Personal history of irradiation; F17.200 Nicotine dependence, unspecified, uncomplicated; Z79.899 Other long term (current) drug therapy; Z88.1 Allergy status to other antibiotic agents; Z91.041 Radiographic dye allergy status
CPT/HCPCS: 71275; 80048; 80076; 82550; 82553; 83605; 83880; 84484; 85025; 87486; 87581; 87633; 87798; 93005; 93041; 94760; 96374; 99285; J2930; Q9967

== ENCOUNTER 2020-09-12 15:45 | Outpatient (RCR) | payer BC ==
[~2020-09-12 15:45] MED LIST changes: +MAGICMW PO; +PRED20TA PO; +PROAAER10 INH
[2020-09-14] MEDS ORDERED: [UNRECOGNIZED DRUG - OTHER] EX (14:08)
== END 2020-09-16 ==
LOC: M ONCR 15:45
PROVIDERS: ATTEND General Practice
DX: C50.411 Malignant neoplasm of upper-outer quadrant of right female breast (principal)

== ENCOUNTER 2020-10-23 12:51 | Emergency (ER) | payer BC ==
[~2020-10-23] VITALS: Ht 162.6 cm; Wt 125.7 kg
[~2020-10-23 12:51] MED LIST changes: +[UNRECOGNIZED DRUG - OTHER] EX
[2020-10-23] MEDS ORDERED: ONDANSETRON 4MG/2ML VIAL IV ONE (14:30)
[2020-10-23] MEDS ORDERED: diphenhydrAMINE 50MG/ML VIAL (J1200) IV ONE (14:30)
[2020-10-23] MEDS ORDERED: NS 1,000 ML IV ONE (14:30)
[2020-10-23] MEDS ORDERED: KETOROLAC 30 MG/ML 1ML VIAL IV ONE (14:30)
[2020-10-23 16:57] LABS: BASO % 0.5 % (0.0-1.0); EOS # 0.1 10^3/uL (0.0-0.5); EOS % 1.8 % (0.0-3.0); HEMATOCRIT 36.7 % (36.0-47.0); LYMPH # 0.8 10^3/uL (1.5-5.0); LYMPH % 13.3 % (24.0-44.0); MEAN CORPUSCULAR HEMOGLOBIN 25.9 pg (27.0-33.0); MEAN CORPUSCULAR VOLUME 86.4 fl (80.0-96.0); MONO # 0.3 10^3/uL (0.0-0.8); MONO % 5.5 % (0.0-5.0); NEUTROPHILS # 4.8 10^3/uL (1.5-8.5); NEUTROPHILS % 78.7 % (36.0-66.0); PLATELET COUNT, AUTOMATED 339 10^3/uL (150-450); RED BLOOD COUNT 4.25 10^6/uL (4.00-5.40); WHITE BLOOD COUNT 6.2 10^3/uL (4.0-10.0)
[2020-10-23 17:25] LABS: ERYTHROCYTE SEDIMENTATION RATE 58 mm/hr (0-20)
[2020-10-23 17:30] LABS: BLOOD UREA NITROGEN 9 MG/DL (7-18); CALCIUM LEVEL 8.7 MG/DL (8.5-10.1); CARBON DIOXIDE LEVEL 29 MEQ/L (21-32); CHLORIDE LEVEL 109 MEQ/L (98-107); CREATININE FOR GFR 0.55 MG/DL (0.55-1.30); GLOMERULAR FILTRATION RATE > 60.0 (>60); GLUCOSE, FASTING 62 MG/DL (70-100); POTASSIUM SERUM 4.4 MEQ/L (3.5-5.1); SODIUM LEVEL 141 MEQ/L (136-145)
[2020-10-23 17:31] LABS: HCG, SERUM QUALITATIVE NEGATIVE (NEGATIVE)
[2020-10-23 18:31] VITALS: BP 105/54
== END 2020-10-23 18:53 | disposition home or self-care (01) ==
LOC: M ED 12:51
DX: G43.909 Migraine, unspecified, not intractable, without status migrainosus (principal); G47.33 Obstructive sleep apnea (adult) (pediatric); K21.9 Gastro-esophageal reflux disease without esophagitis; E66.9 Obesity, unspecified; F32.9 Major depressive disorder, single episode, unspecified; Z85.3 Personal history of malignant neoplasm of breast; Z79.899 Other long term (current) drug therapy; Z88.1 Allergy status to other antibiotic agents; Z91.041 Radiographic dye allergy status
CPT/HCPCS: 80048; 84703; 85025; 85652; 96361; 96374; 96375; 99284; J1200; J1885; J2405

== ENCOUNTER 2020-10-25 12:34 | Emergency (ER) | payer BC ==
[~2020-10-25] VITALS: Ht 162.6 cm; Wt 127.6 kg
[2020-10-25] MEDS ORDERED: KETOROLAC 30 MG/ML 1ML VIAL IV ONE (13:30)
[2020-10-25] MEDS ORDERED: diphenhydrAMINE 50MG/ML VIAL (J1200) IV ONE (13:30)
[2020-10-25] MEDS ORDERED: NS 1,000 ML IV ONE (13:30)
[2020-10-25 14:00] LABS: BASO % 0.4 % (0.0-1.0); EOS # 0.1 10^3/uL (0.0-0.5); EOS % 2.4 % (0.0-3.0); HEMATOCRIT 31.7 % (36.0-47.0); HEMOGLOBIN 9.7 g/dl (12.0-15.5); LYMPH # 0.7 10^3/uL (1.5-5.0); LYMPH % 14.1 % (24.0-44.0); MEAN CORPUSCULAR HEMOGLOBIN 25.9 pg (27.0-33.0); MEAN CORPUSCULAR HGB CONC 30.6 g/dl (32.0-36.5); MEAN CORPUSCULAR VOLUME 84.5 fl (80.0-96.0); MONO # 0.3 10^3/uL (0.0-0.8); MONO % 6.8 % (0.0-5.0); NEUTROPHILS # 3.8 10^3/uL (1.5-8.5); NEUTROPHILS % 75.9 % (36.0-66.0); PLATELET COUNT, AUTOMATED 312 10^3/uL (150-450); RED BLOOD COUNT 3.75 10^6/uL (4.00-5.40)
[2020-10-25] MEDS ORDERED: METOCLOPRAMIDE INJ 10MG/2ML VIAL (J2765 PER 1) IV ONE (14:00)
[2020-10-25 14:19] LABS: BLOOD UREA NITROGEN 8 MG/DL (7-18); CALCIUM LEVEL 8.5 MG/DL (8.5-10.1); CARBON DIOXIDE LEVEL 29 MEQ/L (21-32); CHLORIDE LEVEL 108 MEQ/L (98-107); CREATININE FOR GFR 0.62 MG/DL (0.55-1.30); GLOMERULAR FILTRATION RATE > 60.0 (>60); GLUCOSE, FASTING 108 MG/DL (70-100); POTASSIUM SERUM 3.8 MEQ/L (3.5-5.1); SODIUM LEVEL 141 MEQ/L (136-145)
--- NOTE | 2020-10-25 14:26 | REP ---
INDICATION: severe headache. COMPARISON: None. TECHNIQUE: Helical scanning is acquired. 5 mm axial images were reformatted. Coronal MPR images were generated. FINDINGS: Bone window settings demonstrate an intact bony calvarium. There is no evidence of skull fracture or incidental bony calvarial lesion. The visualized paranasal sinuses appear clear. No intraorbital abnormality is seen. On soft tissue window setting images; the lateral, third, and fourth ventricles are normal in size and position. Kingsley-white differentiation pattern is normal above and below the tentorium. There are is no evidence of intracranial hemorrhage. No mass, edema, infarction, or midline shift is seen. No extra-axial fluid collection is appreciated. IMPRESSION: Negative noncontrast head CT. <Electronically signed by Kushal Lara > 10/25/20 [id number]
[2020-10-25 15:25] VITALS: BP 100/55
== END 2020-10-25 15:27 | disposition home or self-care (01) ==
LOC: M ED 12:34
DX: G43.909 Migraine, unspecified, not intractable, without status migrainosus (principal); I10 Essential (primary) hypertension; Z79.899 Other long term (current) drug therapy; Z88.1 Allergy status to other antibiotic agents; Z91.041 Radiographic dye allergy status
CPT/HCPCS: 36415; 70450; 80048; 83735; 85025; 96361; 96374; 96375; 99284; J1200; J1885; J2765

== ENCOUNTER → 2020-12-14 | Outpatient (CLI) | payer SELFPAY | LOC: M LABSMTC 11:03 | PROVIDERS: ATTEND Pediatrics | DX: Z20.822 Contact with and (suspected) exposure to COVID-19 (principal) ==

== ENCOUNTER → 2020-12-20 | Outpatient (REF) | payer BC ==
[~2020-12-20] MED LIST changes: -MAG400TA PO; +MAGN400T35 PO
[2020-12-20 13:54] LABS: HEMATOCRIT 35.6 % (36.0-47.0); HEMOGLOBIN 10.7 g/dl (12.0-15.5); MEAN CORPUSCULAR HEMOGLOBIN 25.8 pg (27.0-33.0); MEAN CORPUSCULAR HGB CONC 30.1 g/dl (32.0-36.5); MEAN CORPUSCULAR VOLUME 85.8 fl (80.0-96.0); PLATELET COUNT, AUTOMATED 396 10^3/uL (150-450); RED BLOOD COUNT 4.15 10^6/uL (4.00-5.40); WHITE BLOOD COUNT 7.4 10^3/uL (4.0-10.0)
[2020-12-20 14:33] LABS: ALBUMIN 3.2 GM/DL (3.2-5.2); ALT/SGPT 27 U/L (12-78); BILIRUBIN,TOTAL 0.3 MG/DL (0.2-1.0); BLOOD UREA NITROGEN 9 MG/DL (7-18); CALCIUM LEVEL 9.5 MG/DL (8.5-10.1); CARBON DIOXIDE LEVEL 31 MEQ/L (21-32); CHLORIDE LEVEL 105 MEQ/L (98-107); CHOLESTEROL LEVEL 211 MG/DL (<200); CHOLESTEROL RISK RATIO 4.306 (<5); CREATININE FOR GFR 0.57 MG/DL (0.55-1.30); FREE T4 0.81 NG/DL (0.76-1.46); GLOMERULAR FILTRATION RATE > 60.0 (>60); GLUCOSE, FASTING 81 MG/DL (70-100); HDL CHOLESTEROL 49 MG/DL (>40); LDL CHOLESTEROL 138 MG/DL (<100); NON-HDL-C 162 MG/DL; POTASSIUM SERUM 4.4 MEQ/L (3.5-5.1); SODIUM LEVEL 140 MEQ/L (136-145); THYROID STIMULATING HORMONE 0.015 uIU/ML (0.358-3.740); TOTAL PROTEIN 7.3 GM/DL (6.4-8.2); TRIGLYCERIDES LEVEL 122 MG/DL (<150)
[2020-12-20 14:42] LABS: FOLATE 22.1 NG/ML; VITAMIN B12 LEVEL 620 PG/ML
== END ==
LOC: M SFHCPLAZ 11:26
PROVIDERS: ATTEND Nurse Practitioner Family
DX: R53.82 Chronic fatigue, unspecified (principal); F34.1 Dysthymic disorder; E66.9 Obesity, unspecified; E55.9 Vitamin D deficiency, unspecified

== ENCOUNTER → 2020-12-26 | Outpatient (REF) | payer BC | LOC: M SFHCADAM 10:40 | PROVIDERS: ATTEND Nurse Practitioner Family | DX: D64.9 Anemia, unspecified (principal) ==

== ENCOUNTER → 2021-02-26 | Outpatient (REF) | payer BC ==
[~2021-02-26] MED LIST changes: +NAPR-849 PO; -NAPR250T4 PO
[2021-02-26 17:21] LABS: FREE T4 0.48 NG/DL (0.76-1.46); THYROID STIMULATING HORMONE 5.63 uIU/ML (0.358-3.740)
== END ==
LOC: M LABDRWAD 15:58
PROVIDERS: ATTEND Internal Medicine Endocrinology, Diabetes & Metabolism
DX: R94.6 Abnormal results of thyroid function studies (principal)

== ENCOUNTER → 2021-03-08 | Outpatient (REF) | payer BC ==
[2021-03-08 17:29] LABS: HEMATOCRIT 36.2 % (36.0-47.0); HEMOGLOBIN 11.1 g/dl (12.0-15.5); MEAN CORPUSCULAR HEMOGLOBIN 26.6 pg (27.0-33.0); MEAN CORPUSCULAR HGB CONC 30.7 g/dl (32.0-36.5); MEAN CORPUSCULAR VOLUME 86.6 fl (80.0-96.0); PLATELET COUNT, AUTOMATED 368 10^3/uL (150-450); RED BLOOD COUNT 4.18 10^6/uL (4.00-5.40); WHITE BLOOD COUNT 7.5 10^3/uL (4.0-10.0)
== END ==
LOC: M SFHCPLAZ 15:00
PROVIDERS: ATTEND Nurse Practitioner Family
DX: D50.9 Iron deficiency anemia, unspecified (principal)

== ENCOUNTER → 2021-05-08 | Outpatient (REF) | payer BC ==
[2021-05-08 20:17] LABS: FREE T4 0.59 NG/DL (0.76-1.46); THYROID STIMULATING HORMONE 2.36 uIU/ML (0.358-3.740)
== END ==
LOC: M LABDRWAD 19:21
PROVIDERS: ATTEND Nurse Practitioner Family
DX: R94.6 Abnormal results of thyroid function studies (principal)

== ENCOUNTER 2022-04-16 12:24 | Emergency (ER) | payer BC ==
[~2022-04-16] VITALS: Ht 162.6 cm; Wt 127.8 kg
[~2022-04-16 12:24] MED LIST changes: -CAND4TAB PO; +CAND4TAB7 PO; -MAGN400T3 PO; +MAGN400T33 PO
[2022-04-16 12:35] VITALS: BP 121/76
== END 2022-04-16 16:00 | disposition left against medical advice (07) ==
LOC: M ED 12:24
DX: Z53.21 Procedure and treatment not carried out due to patient leaving prior to being seen by health care provider (principal)

== ENCOUNTER → 2022-04-19 | Outpatient (CLI) | payer BC ==
[2022-04-19 16:16] LABS: ALT/SGPT 20 U/L (12-78); BILIRUBIN,TOTAL 0.3 MG/DL (0.2-1.0); BLOOD UREA NITROGEN 10 MG/DL (7-18); C REACTIVE PROTEIN QUANTITATIV 3.68 MG/DL (0.00-0.30); CALCIUM LEVEL 8.5 MG/DL (8.5-10.1); CARBON DIOXIDE LEVEL 29 MEQ/L (21-32); CHLORIDE LEVEL 105 MEQ/L (98-107); CREATININE FOR GFR 0.62 MG/DL (0.55-1.30); FERRITIN 34 NG/ML (8-252); GLOMERULAR FILTRATION RATE > 60.0 (>60); GLUCOSE, FASTING 79 MG/DL (70-100); IRON (FE) 55 UG/DL (50-170); NT-PRO BNP 77 PG/ML (<125); POTASSIUM SERUM 4.5 MEQ/L (3.5-5.1); SODIUM LEVEL 139 MEQ/L (136-145); TOTAL 25(OH) VITAMIN D 25.1 NG/ML (30.0-100.0); TOTAL PROTEIN 7.5 GM/DL (6.4-8.2)
== END ==
LOC: M PLALAB 09:44
PROVIDERS: ATTEND Physician Assistant
DX: E55.9 Vitamin D deficiency, unspecified (principal); E05.90 Thyrotoxicosis, unspecified without thyrotoxic crisis or storm; I50.42 Chronic combined systolic (congestive) and diastolic (congestive) heart failure; R51.9 Headache, unspecified; D50.9 Iron deficiency anemia, unspecified

== ENCOUNTER → 2022-05-07 | Outpatient (CLI) | payer BC | LOC: M PLAIMG 09:58 | PROVIDERS: ATTEND Physician Assistant | DX: R51.9 Headache, unspecified (principal); R42 Dizziness and giddiness; C50.919 Malignant neoplasm of unspecified site of unspecified female breast ==

== ENCOUNTER → 2022-06-16 | Outpatient (REF) | LOC: M LABSMTC 09:38 | PROVIDERS: ATTEND Family Medicine | DX: Z20.822 Contact with and (suspected) exposure to COVID-19 (principal) ==

== ENCOUNTER 2022-07-18 13:05 | Emergency (ER) | payer BC ==
[~2022-07-18] VITALS: Ht 162.6 cm; Wt 120.0 kg
[2022-07-18 14:29] LABS: BASO % 0.5 % (0.0-1.0); EOS # 0.1 10^3/uL (0.0-0.5); EOS % 1.4 % (0.0-3.0); HEMATOCRIT 32.5 % (36.0-47.0); HEMOGLOBIN 10.3 g/dl (12.0-15.5); LYMPH # 2.1 10^3/uL (1.5-5.0); MEAN CORPUSCULAR HEMOGLOBIN 27.8 pg (27.0-33.0); MEAN CORPUSCULAR HGB CONC 31.7 g/dl (32.0-36.5); MEAN CORPUSCULAR VOLUME 87.6 fl (80.0-96.0); MONO # 0.3 10^3/uL (0.0-0.8); MONO % 3.6 % (2.0-8.0); NEUTROPHILS # 5.9 10^3/uL (1.5-8.5); NEUTROPHILS % 69.1 % (36.0-66.0); PLATELET COUNT, AUTOMATED 358 10^3/uL (150-450); RED BLOOD COUNT 3.71 10^6/uL (4.00-5.40); WHITE BLOOD COUNT 8.5 10^3/uL (4.0-10.0)
[2022-07-18] MEDS ORDERED: ASPIRIN 81 MG CHEW TABLET PO ONE (15:05)
[2022-07-18] MEDS ORDERED: NITROGLYCERIN 0.4 MG SUBL TABLET SL PRN (15:05)
[2022-07-18 15:08] VITALS: BP 132/68
[2022-07-18 15:10] LABS: BLOOD UREA NITROGEN 7 MG/DL (7-18); CALCIUM LEVEL 8.9 MG/DL (8.5-10.1); CARBON DIOXIDE LEVEL 25 MEQ/L (21-32); CHLORIDE LEVEL 104 MEQ/L (98-107); CREATININE FOR GFR 0.59 MG/DL (0.55-1.30); GLOMERULAR FILTRATION RATE > 60.0 (>60); GLUCOSE, FASTING 89 MG/DL (70-100); POTASSIUM SERUM 3.4 MEQ/L (3.5-5.1); SODIUM LEVEL 134 MEQ/L (136-145)
[2022-07-18] MEDS ORDERED: POTASSIUM CHLORIDE 10MEQ SR TABLET PO ONE (15:20)
[2022-07-18] MEDS ORDERED: ISOVUE-370 76% 100ML VIAL As Ordered ONE (15:25)
[2022-07-18 15:55] LABS: ALBUMIN 2.9 GM/DL (3.2-5.2); ALT/SGPT 17 U/L (12-78); BILIRUBIN,DIRECT < 0.1 MG/DL (0.0-0.2); BILIRUBIN,TOTAL 0.2 MG/DL (0.2-1.0); TOTAL PROTEIN 7.7 GM/DL (6.4-8.2)
[2022-07-18 16:11] LABS: LIPASE 70 U/L (73-393)
[2022-07-18 16:13] LABS: CK-MB VALUE MASS 1.4 NG/ML (<3.6); MB/CK RELATIVE INDEX 1.31 (< OR =4)
[2022-07-18 18:01] LABS: CK-MB VALUE MASS 1.1 NG/ML (<3.6); MB/CK RELATIVE INDEX 1.83 (< OR =4)
[2022-07-18 19:34] LABS: CK-MB VALUE MASS < 1.0 NG/ML (<3.6); CPK CREATINE PHOSPHOKINASE 60 U/L (26-192); MB/CK RELATIVE INDEX 1.67 (< OR =4)
[2022-07-18 20:50] VITALS: BP 126/70
== END 2022-07-18 21:07 | disposition home or self-care (01) ==
LOC: M ED 13:05
DX: R07.9 Chest pain, unspecified (principal); Z85.3 Personal history of malignant neoplasm of breast; Z87.59 Personal history of other complications of pregnancy, childbirth and the puerperium; F32.9 Major depressive disorder, single episode, unspecified; Z79.899 Other long term (current) drug therapy; Z91.041 Radiographic dye allergy status; Z88.8 Allergy status to other drugs, medicaments and biological substances
CPT/HCPCS: 71275; 80048; 80076; 82550; 82553; 83690; 84484; 84702; 85025; 93005; 93041; 94760; 99285; Q9967

== ENCOUNTER → 2022-10-03 | Outpatient (CLI) | payer BC | LOC: M SLEEP HO 10:26 | PROVIDERS: ATTEND Nurse Practitioner Family | DX: R06.83 Snoring (principal); R40.0 Somnolence ==

== ENCOUNTER → 2022-12-20 | Outpatient (REF) | LOC: M EMP 14:43 | PROVIDERS: ATTEND Family Medicine | DX: Z11.52 Encounter for screening for COVID-19 (principal) ==

== ENCOUNTER → 2023-02-02 | Outpatient (REF) | payer BC | LOC: M LAB REF 14:26 | PROVIDERS: ATTEND Physician Assistant Medical | DX: J02.9 Acute pharyngitis, unspecified (principal) ==

== ENCOUNTER → 2023-04-25 | Outpatient (CLI) | payer BC ==
[~2023-04-25] MED LIST changes: +ASPI-655 PO; -ASPI1CHW3 PO
[2023-04-25 20:35] LABS: THYROID STIMULATING HORMONE 4.473 uIU/ML (0.55-4.78)
[2023-04-25 20:37] LABS: FREE T4 0.61 NG/DL (0.89-1.76); MAGNESIUM LEVEL 1.8 MG/DL (1.8-2.4)
== END ==
LOC: M PLALAB 16:10
PROVIDERS: ATTEND Physician Assistant
DX: E05.90 Thyrotoxicosis, unspecified without thyrotoxic crisis or storm (principal); G43.909 Migraine, unspecified, not intractable, without status migrainosus

== ENCOUNTER → 2023-04-27 | Outpatient (REF) | payer BC | LOC: M SFHCPLAZ 17:57 | PROVIDERS: ATTEND Physician Assistant | DX: R19.7 Diarrhea, unspecified (principal) ==

== ENCOUNTER → 2023-05-07 | Outpatient (REF) | payer BC | LOC: M SFHCWAGY 13:13 | PROVIDERS: ATTEND Nurse Practitioner Family | DX: Z12.4 Encounter for screening for malignant neoplasm of cervix (principal); R10.2 Pelvic and perineal pain | CPT/HCPCS: 87086; 87480; 87510; 87624; 87660; G0123 ==

== ENCOUNTER → 2023-05-13 | Outpatient (REF) | payer BC | LOC: M SFHCWAGY 17:37 | PROVIDERS: ATTEND Nurse Practitioner Family | DX: R10.2 Pelvic and perineal pain (principal) ==

== ENCOUNTER → 2023-05-13 | Outpatient (CLI) | payer BC ==
[2023-05-13 14:03] LABS: BASO % 0.4 % (0.0-1.0); EOS # 0.3 10^3/uL (0.0-0.5); EOS % 4.5 % (0.0-3.0); HEMATOCRIT 35.3 % (36.0-47.0); HEMOGLOBIN 10.9 g/dl (12.0-15.5); LYMPH # 1.8 10^3/uL (1.5-5.0); LYMPH % 25.5 % (24.0-44.0); MEAN CORPUSCULAR HEMOGLOBIN 27.9 pg (27.0-33.0); MEAN CORPUSCULAR HGB CONC 30.9 g/dl (32.0-36.5); MEAN CORPUSCULAR VOLUME 90.3 fl (80.0-96.0); MONO # 0.3 10^3/uL (0.0-0.8); MONO % 4.5 % (2.0-8.0); NEUTROPHILS # 4.6 10^3/uL (1.5-8.5); NEUTROPHILS % 64.7 % (36.0-66.0); PLATELET COUNT, AUTOMATED 354 10^3/uL (150-450); RED BLOOD COUNT 3.91 10^6/uL (4.00-5.40); WHITE BLOOD COUNT 7.1 10^3/uL (4.0-10.0)
[2023-05-13 14:30] LABS: ALKALINE PHOSPHATASE 121 U/L (46-116); ALT/SGPT 16 U/L (7.0-40); AST/SGOT 9 U/L (<34); BILIRUBIN,TOTAL 0.3 MG/DL (0.3-1.2); BLOOD UREA NITROGEN 10 MG/DL (9-23); CALCIUM LEVEL 9.3 MG/DL (8.5-10.1); CARBON DIOXIDE LEVEL 29 MMOL/L (20-31); CHLORIDE LEVEL 103 MMOL/L (98-107); CHOLESTEROL LEVEL 197 MG/DL (<200); CHOLESTEROL RISK RATIO 4.26 (<5); CREATININE FOR GFR 0.57 MG/DL (0.55-1.30); GLOMERULAR FILTRATION RATE > 60.0 (>60); GLUCOSE, FASTING 81 MG/DL (60-100); HDL CHOLESTEROL 46.2 MG/DL (>40); LDL CHOLESTEROL 115.8 MG/DL (<100); NON-HDL-C 150.8 MG/DL; POTASSIUM SERUM 3.8 MMOL/L (3.5-5.1); SODIUM LEVEL 136 MMOL/L (136-145); TRIGLYCERIDES LEVEL 175 MG/DL (<150)
== END ==
LOC: M PLALAB 10:23
PROVIDERS: ATTEND Physician Assistant
DX: Z13.220 Encounter for screening for lipoid disorders (principal); Z01.89 Encounter for other specified special examinations; E55.9 Vitamin D deficiency, unspecified

== ENCOUNTER → 2023-05-30 | Outpatient (CLI) | payer BC | LOC: M WHC 14:35 | PROVIDERS: ATTEND Nurse Practitioner Family | DX: R10.2 Pelvic and perineal pain (principal) ==

== ENCOUNTER → 2024-03-26 | Outpatient (CLI) | payer BC ==
[2024-03-26 11:40] LABS: BASO % 0.3 % (0.0-1.0); EOS # 0.1 10^3/uL (0.0-0.5); EOS % 1.6 % (0.0-3.0); HEMATOCRIT 37.3 % (36.0-47.0); HEMOGLOBIN 11.8 g/dl (12.0-15.5); LYMPH # 1.9 10^3/uL (1.5-5.0); LYMPH % 21.7 % (24.0-44.0); MEAN CORPUSCULAR HEMOGLOBIN 27.3 pg (27.0-33.0); MEAN CORPUSCULAR HGB CONC 31.6 g/dl (32.0-36.5); MEAN CORPUSCULAR VOLUME 86.1 fl (80.0-96.0); MONO # 0.4 10^3/uL (0.0-0.8); MONO % 4.1 % (2.0-8.0); NEUTROPHILS # 6.3 10^3/uL (1.5-8.5); NEUTROPHILS % 72.1 % (36.0-66.0); PLATELET COUNT, AUTOMATED 371 10^3/uL (150-450); RED BLOOD COUNT 4.33 10^6/uL (4.00-5.40); WHITE BLOOD COUNT 8.8 10^3/uL (4.0-10.0)
[2024-03-26 11:50] LABS: HEMOGLOBIN A1c 4.9 % (4.0-6.0)
[2024-03-26 12:03] LABS: ALBUMIN 3.2 G/DL (3.2-5.2); ALKALINE PHOSPHATASE 144 U/L (46-116); ALT/SGPT 20 U/L (7.0-40); AST/SGOT 21 U/L (<34); BILIRUBIN,TOTAL 0.4 MG/DL (0.3-1.2); BLOOD UREA NITROGEN 10 MG/DL (9-23); CARBON DIOXIDE LEVEL 30 MMOL/L (20-31); CHLORIDE LEVEL 103 MMOL/L (98-107); CREATININE FOR GFR 0.62 MG/DL (0.55-1.30); GLOMERULAR FILTRATION RATE > 60.0 (>60); GLUCOSE, FASTING 89 MG/DL (60-100); POTASSIUM SERUM 4.1 MMOL/L (3.5-5.1); SODIUM LEVEL 138 MMOL/L (136-145); TOTAL PROTEIN 7.4 G/DL (5.7-8.2)
[2024-03-26 12:07] LABS: THYROID STIMULATING HORMONE 7.502 uIU/ML (0.55-4.78)
[2024-03-26 12:08] LABS: FREE T4 0.77 NG/DL (0.89-1.76)
== END ==
LOC: M LAB 11:04
PROVIDERS: ATTEND Physician Assistant Medical
DX: I42.8 Other cardiomyopathies (principal)

== ENCOUNTER → 2024-11-24 | Outpatient (REF) | payer BC ==
[2024-11-24 14:27] LABS: BASO % 0.5 % (0.0-1.0); EOS # 0.1 10^3/uL (0.0-0.5); EOS % 1.5 % (0.0-3.0); HEMATOCRIT 35.1 % (36.0-47.0); HEMOGLOBIN 10.9 g/dl (12.0-15.5); LYMPH # 1.7 10^3/uL (1.5-5.0); LYMPH % 28.8 % (24.0-44.0); MEAN CORPUSCULAR HEMOGLOBIN 27.3 pg (27.0-33.0); MEAN CORPUSCULAR HGB CONC 31.1 g/dl (32.0-36.5); MEAN CORPUSCULAR VOLUME 87.8 fl (80.0-96.0); MONO # 0.3 10^3/uL (0.0-0.8); MONO % 4.3 % (2.0-8.0); NEUTROPHILS # 3.8 10^3/uL (1.5-8.5); NEUTROPHILS % 64.6 % (36.0-66.0); PLATELET COUNT, AUTOMATED 368 10^3/uL (150-450); WHITE BLOOD COUNT 5.9 10^3/uL (4.0-10.0)
[2024-11-24 14:39] LABS: HEMOGLOBIN A1c 5.2 % (4.0-6.0)
[2024-11-24 14:53] LABS: ALKALINE PHOSPHATASE 111 U/L (35-104); ALT/SGPT 20 U/L (7.0-40); AST/SGOT 15 U/L (<34); BILIRUBIN,TOTAL 0.3 MG/DL (0.3-1.2); BLOOD UREA NITROGEN 9 MG/DL (9-23); CALCIUM LEVEL 8.8 MG/DL (8.5-10.1); CARBON DIOXIDE LEVEL 30 MMOL/L (20-31); CHLORIDE LEVEL 104 MMOL/L (98-107); CREATININE FOR GFR 0.54 MG/DL (0.55-1.30); FREE T4 0.73 NG/DL (0.89-1.76); GLOMERULAR FILTRATION RATE > 60.0 (>60); GLUCOSE, FASTING 103 MG/DL (60-100); MAGNESIUM LEVEL 1.6 MG/DL (1.8-2.4); POTASSIUM SERUM 3.9 MMOL/L (3.5-5.1); SODIUM LEVEL 138 MMOL/L (136-145)
[2024-11-24 14:55] LABS: THYROID STIMULATING HORMONE 3.764 uIU/ML (0.55-4.78)
== END ==
LOC: M LABDRWAD 12:21
PROVIDERS: ATTEND Physician Assistant Medical
DX: I42.8 Other cardiomyopathies (principal)

== ENCOUNTER → 2025-02-24 | Outpatient (CLI) | payer BC | LOC: M PLARAD 14:44 | PROVIDERS: ATTEND Nurse Practitioner Family | DX: G43.909 Migraine, unspecified, not intractable, without status migrainosus (principal) ==

== ENCOUNTER → 2025-03-02 | Outpatient (CLI) | payer BC ==
[2025-03-02 18:48] LABS: HEMATOCRIT 36.4 % (36.0-47.0); HEMOGLOBIN 11.4 g/dl (12.0-15.5); MEAN CORPUSCULAR HEMOGLOBIN 27.3 pg (27.0-33.0); MEAN CORPUSCULAR HGB CONC 31.3 g/dl (32.0-36.5); MEAN CORPUSCULAR VOLUME 87.3 fl (80.0-96.0); PLATELET COUNT, AUTOMATED 394 10^3/uL (150-450); RED BLOOD COUNT 4.17 10^6/uL (4.00-5.40); WHITE BLOOD COUNT 8.6 10^3/uL (4.0-10.0)
[2025-03-02 19:27] LABS: HEMOGLOBIN A1c 5.1 % (4.0-6.0)
[2025-03-02 19:35] LABS: ALBUMIN 3.2 G/DL (3.2-5.2); ALKALINE PHOSPHATASE 127 U/L (35-104); ALT/SGPT 20 U/L (7.0-40); AST/SGOT 13 U/L (<34); BILIRUBIN,TOTAL 0.2 MG/DL (0.3-1.2); BLOOD UREA NITROGEN 11 MG/DL (9-23); CALCIUM LEVEL 8.9 MG/DL (8.5-10.1); CARBON DIOXIDE LEVEL 29 MMOL/L (20-31); CHLORIDE LEVEL 101 MMOL/L (98-107); CHOLESTEROL LEVEL 179 MG/DL (<200); CHOLESTEROL RISK RATIO 3.95 (<5); FOLATE 16.1 NG/ML (>5.4); FREE T4 0.77 NG/DL (0.89-1.76); GLOMERULAR FILTRATION RATE > 90.0 (>60); GLUCOSE, FASTING 90 MG/DL (60-100); HDL CHOLESTEROL 45.3 MG/DL (>40); IRON (FE) 35 UG/DL (50-170); LDL CHOLESTEROL 94.3 MG/DL (<100); NON-HDL-C 133.7 MG/DL; PERCENT SATURATION 9.9 % (13.2-45.0); POTASSIUM SERUM 3.9 MMOL/L (3.5-5.1); SODIUM LEVEL 138 MMOL/L (136-145); THYROID STIMULATING HORMONE 2.163 uIU/ML (0.55-4.78); TOTAL IRON BINDING CAPACITY 353 UG/DL (250-425); TOTAL PROTEIN 7.3 G/DL (5.7-8.2); TRIGLYCERIDES LEVEL 197 MG/DL (<150)
[2025-03-02 19:37] LABS: VITAMIN B12 LEVEL 486 PG/ML (211-911)
== END ==
LOC: M PLALAB 15:17
PROVIDERS: ATTEND Nurse Practitioner Family
DX: D50.9 Iron deficiency anemia, unspecified (principal)

== ENCOUNTER → 2025-03-02 | Outpatient (REF) | payer BC | LOC: M SFHCPLAZ 15:03 | PROVIDERS: ATTEND Nurse Practitioner Family | DX: Z53.9 Procedure and treatment not carried out, unspecified reason (principal) ==

== ENCOUNTER → 2025-07-27 | Outpatient (REF) | payer BC ==
[~2025-07-27] MED LIST changes: -ASPI-655 PO; +ASPI-737 PO; +CAPE150T18 PO; -IBUP1TAB6 PO; +SFHIBU600 PO; -XELO150T PO
[2025-07-27 18:52] LABS: PLATELET COUNT, AUTOMATED 415 10^3/uL (150-450)
[2025-07-27 19:43] LABS: ERYTHROCYTE SEDIMENTATION RATE 80 mm/hr (0-20)
== END ==
LOC: M LABDRWAD 17:51
PROVIDERS: ATTEND Ophthalmology
DX: R51.9 Headache, unspecified (principal)

== ENCOUNTER → 2025-08-11 | Outpatient (REF) | payer BC | LOC: M LAB REF 20:52 | PROVIDERS: ATTEND Physician Assistant | DX: B34.9 Viral infection, unspecified (principal) ==